=== PATIENT | male | born 1960 | race Caucasian/White ===

== ENCOUNTER 2017-05-05 16:32 | Inpatient (IN) ==
[2017-05-05 18:54] LABS: Basophils # 0.1 K/mcL (0.0-0.2); Eosinophils # 0.5 K/mcL (0.0-0.6); Eosinophils % 4.8 %; Hematocrit 38.5 % (37.5-50.1); Hemoglobin 13.1 g/dL (12.9-16.9); Immature Granulocytes % 0.2 % (0-4); Lymphocytes # 3.9 K/mcL (0.6-4.6); Lymphocytes % 39.1 %; Mean Corpuscular Hemoglobin 32.4 pg (28.0-33.3); Mean Corpuscular Volume 95.3 fL (83.0-100.0); Mean Platelet Volume 9.8 fL (9.4-12.4); Monocytes % 10.1 %; Neutrophils # 4.4 K/mcL (1.6-8.9); Platelet Count 213 K/mcL (140-400); Red Blood Count 4.04 M/mcL (4.19-5.50); Red Cell Distribution Width 13.1 % (11.5-14.5); Segmented Neutrophils % 44.8 %
[2017-05-05 19:06] LABS: Albumin 2.5 g/dL (3.5-5.0); Albumin/Globulin Ratio 0.5 (1.1-2.2); Bilirubin,Total 0.5 mg/dL (0.2-1.2); Calcium 8.7 mg/dL (8.6-10.8); Globulin 4.8 g/dL (2.4-3.5); Potassium 4.1 mEq/L (3.5-4.5); Total Protein 7.3 g/dL (6.0-8.3)
[2017-05-05] MEDS ORDERED: 0.9 % Sodium Chloride 1,000 ML IVC ONE (19:13)
[2017-05-05] MEDS ORDERED: Vancomycin 1,000 MG in D5% in Water 250 ML IVPB ONE (19:13)
--- NOTE | 2017-05-05 19:17 | Emergency Department Note ---
Disposition Clinical Impression: Osteomyelitis of foot, left, acute, Acute kidney injury Disposition: Admitted As Inpatient Condition: Serious Referrals: Cesar Bourgeois DO [Primary Care Provider] - Forms: ED Satisfaction Letter Time of Disposition: 19:20 Lower Extremity Injury HPI - General Chief Complaint: ED Wound/Laceration Stated Complaint: Dr. Bourgeois// infection on left big toe Time Seen by Provider: 05/05/17 19:11 Source: patient Limitations: no limitations Nursing Notes Reviewed: Yes Vital Signs Reviewed: Yes - History of Present Illness HPI Narrative: 56-year-old male history of hepatitis C on antiviral treatment, history of lower extremity frostbite, and peripheral neuropathy, presents after a injury to his left great toe 6 days ago complaining of left toe pain and possible infection. Patient was transferred from his primary care physician's office. Jatin Daley saw him today and was concerned for infection of his left great toe. The patient the patient states that he has maybe 2 out of 10 pain with emulating but does not feel much pain with toe secondary to neuropathy. Patient states that after he kicked his toe 4 days ago he went into the urgent care where they prescribed him Bactrim but did not examine his foot. He then ascribes a ecchymotic purple foot that expressed pus and later became erosive prior to going to the PCP, he had no fever, chills, shortness of breath, chest pain, hemoptysis, hematuria, hematemesis. Pt Subjective Complaint: toe injury Onset (ago): day(s) (6) Context: fall Place: home Pain Severity: mild Pain Scale: 2 Improves with: nothing Worsens with: nothing Associated symptoms: Reports: able to partially bear weight - Related Data Home Medications Medication Instructions Recorded Confirmed Albuterol Sulfate [Albuterol 2 puff IH Q4H PRN 12/20/15 05/30/16 Inhaler] Diclofenac Sodium [Voltaren] 75 mg PO BID 12/20/15 05/30/16 HYDROcodone/Acet 5/325 mg [[place] 1 tab PO Q6H PRN 12/20/15 05/30/16 5-325 mg] Losartan Potassium [Cozaar] 50 mg PO BID 12/20/15 05/30/16 Nadolol 20 mg PO DAILY 12/20/15 05/30/16 Ranitidine HCl [Zantac] 150 mg PO BID PRN 12/20/15 05/30/16 diazePAM [Diazepam] 10 mg PO TID 12/20/15 05/30/16 Albuterol Neb [AccuNeb] 0.63 mg IH Q6H PRN 05/05/17 05/05/17 Elbasvir/Grazoprevir [Zepatier 1 each PO DAILY 05/05/17 05/05/17 50-100 mg Tablet] Umeclidinium Brm/Vilanterol Tr 1 each IH DAILY 05/05/17 05/05/17 [Anoro Ellipta 62.5-25 Mcg INH] Previous Rx's Medication Instructions Recorded Mupirocin [Bactroban Oint] 1 appl TP BID 7 Days 04/24/17 Allergies Allergy/AdvReac Type Severity Reaction Status Date / Time Penicillins Allergy Swelling Verified 05/05/17 16:50 of Lip/Tongue/Throat All systems ED: reviewed and negative except as stated. Review of Systems: As Per HPI Constitutional: Denies: fever Eyes: Denies: eye pain ENT ED: Denies: ear pain Cardiovascular: Denies: chest pain, palpitations Respiratory: Denies: cough, dyspnea Gastrointestinal: Denies: abdominal pain, nausea, vomiting Genitourinary: Denies: urgency Musculoskeletal: Reports: as per HPI, joint swelling, arthralgia. Denies: back pain Integumentary: Reports: as per HPI, rash, lesions Past Medical History - Past Medical History Attestation: Yes The following information was validated with the patient. Source: patient Medical history: Reports: COPD, other Surgical history: Reports: other Psychiatric history: Reports: anxiety - Social History Smoking Status: Current every day smoker Smokeless Tobacco Status: No Alcohol use: Reports: none Drug use: Reports: none Physical Exam Constitutional: NAD, vital signs reviewed and wnl Eyes: PERRLA Resp: CTA bilaterally, no resp distress CV: RRR, no m/g/r GI: normal inspection, soft, no guarding or rigidity Back: normal inspection, no tenderness to palpation Neuro: A&O3, decreased sensation bilateral lower extremity's. MSK: exposed bone left great toe with obvious deformity Skin: Lesion to left great toe 3cm diameter with purulence and erosive changes - General Limitations: no limitations General appearance: alert Course Course Narrative: 56-year-old male with concern for left great toe osteomyelitis he appears have an open fracture with bone exposed, I will start IV antibiotics and ceftriaxone given that he has had no anaphylaxis to cephalosporins in the past, Consult podiatry blood work vitals shows no evidence of Sirs criteria, plan for admission to medicine service - Reevaluation(s) Reevaluation #1: Admitted to Dr Walters, IV Abx started IV Fluids and NPO after midnight plan for podiatry consultation in AM to discuss surgical management. - Consultations Consultation #1: Spoke with Dr. Smith he agrees with plan, will consult patient after hospitalist admission. Vital Signs Temperature 98.6 F 05/05/17 16:50 Pulse Rate 70 05/05/17 16:50 Respiratory Rate 20 05/05/17 16:50 Blood Pressure 125/82 05/05/17 16:50 O2 Sat by Pulse Oximetry 97 05/05/17 16:50 Temperature 98.6 F 05/05/17 16:50 Pulse Rate 70 05/05/17 16:50 Respiratory Rate 20 05/05/17 16:50 Blood Pressure 125/82 05/05/17 16:50 O2 Sat by Pulse Oximetry 97 05/05/17 16:50 Oxygen Delivery Oxygen Delivery Room Air Extremity Injury, Lower - MDM Narrative Medical decision making narrative: 56-year-old male with left great toe osteomyelitis admitted to medicine service for IV antibiotics podiatry consult and possible amputation Dr Walters accepting - Differential Diagnosis Likely: sprain/strain, puncture wound - Medical Records Medical records reviewed: Yes I reviewed the patient's medical records. - Lab Data Lab results reviewed: Yes I reviewed the patient's lab results. Result diagrams: 05/05/17 18:41 05/05/17 18:41 Lab Results 05/05/17 05/05/17 Range/Units 18:41 18:41 WBC 9.9 (4.3-11.1) K/mcL RBC 4.04 L (4.19-5.50) M/mcL Hgb 13.1 (12.9-16.9) g/dL Hct 38.5 (37.5-50.1) % MCV 95.3 (83.0-100.0) fL MCH 32.4 (28.0-33.3) pg MCHC 34.0 (31.6-35.5) g/dL RDW 13.1 (11.5-14.5) % Plt Count 213 (140-400) K/mcL MPV 9.8 (9.4-12.4) fL Immature Gran % 0.2 (0-4) % Seg Neutrophils % 44.8 % Lymphocytes % 39.1 % Monocytes % 10.1 % Eosinophils % 4.8 % Basophils % 1.0 % Neutrophils # 4.4 (1.6-8.9) K/mcL Lymphocytes # 3.9 (0.6-4.6) K/mcL Monocytes # 1.0 (0.0-1.3) K/mcL Eosinophils # 0.5 (0.0-0.6) K/mcL Basophils # 0.1 (0.0-0.2) K/mcL Sodium 138 (136-145) mEq/L Potassium 4.1 (3.5-4.5) mEq/L Chloride 109 (98-109) mEq/L Carbon Dioxide 23 (19-29) mEq/L BUN 16 (8-26) mg/dL Creatinine 2.13 H (0.72-1.25) mg/dL Est GFR ( Amer) 39 L (> 60) Est GFR (Non-Af Amer) 33 L (> 60) BUN/Creatinine Ratio 8 (6-26) Glucose 116 H (70-99) mg/dL Calculated Osmolality 288 (280-300) Calcium 8.7 (8.6-10.8) mg/dL Total Bilirubin 0.5 (0.2-1.2) mg/dL AST 68 H (5-34) Units/L ALT 55 (0-55) Units/L Alkaline Phosphatase 117 (38-126) Units/L Serum Total Protein 7.3 (6.0-8.3) g/dL Albumin 2.5 L (3.5-5.0) g/dL Globulin 4.8 H (2.4-3.5) g/dL Albumin/Globulin Ratio 0.5 L (1.1-2.2) - Radiology Data Radiology results reviewed: Yes I reviewed the patient's radiology results. Foot X-Ray 05/05/17 16:54 IMPRESSION: Acute, open, comminuted great toe proximal phalanx fracture with erosive changes of the great toe distal and proximal phalanges consistent with osteomyelitis. D/ / Ti Alvarez MD / Ti Alvarez MD Interpreting Provider: Ti Alvarez MD Attestation Statement - Attestation Attestation: I, Maximino Love MD, personally evaluated this patient and discussed their management with the resident physician. I reviewed the resident's note and agree with the documented findings, medical decision making, and plan of care. 56-year-old male presents to the emergency department with a complaint of an injury to the left big toe which occurred 6 days prior to arrival. Patient states that he accidentally kicked a television during the night 6 days ago. He had an open wound. He went to an urgent care 4 days ago on Thursday. He states that they did not undress the wound or even look at his toe but gave him a prescription for Bactrim. He saw his primary care provider today who referred him to the emergency department. Denies any fever. He denies any significant pain but states that he has a history of frostbite in the past and has no feeling in his feet. He is not diabetic. On examination patient is a well-developed well-nourished male in no acute distress. He is alert and oriented 3. There is no cyanosis or diaphoresis. Breath sounds are slightly decreased bilaterally with an occasional expiratory wheeze. Heart regular rate and rhythm. Abdomen is soft and nontender with normal bowel sounds. There is a large open wound to the medial aspect of the left big toe with fractured back dry on protruding from the wound. There is moderate surrounding erythema and edema with purulent drainage. Labs reviewed. Acute kidney injury noted. WBC normal. X-ray shows an open comminuted fracture of the proximal phalanx of the left big toe with findings of osteomyelitis. The human resources operations coordinator, Dr. Smith, was consulted by Dr. Le and recommended hospital admission with IV antibiotics and he will see the patient in the morning regarding possible amputation of the toe. The hospitalist, Dr. Walters, was consulted and accepted admission of the patient. Patient was started on vancomycin and Rocephin in the emergency department.
[2017-05-06] MEDS ORDERED: Acetaminophen 325 MG TABLET PO PRN (04:08)
[2017-05-06] MEDS ORDERED: Ondansetron 4 MG/2 ML VIAL IVP PRN (04:08)
[2017-05-06] MEDS ORDERED: Naloxone 0.4 MG/ML INJ IVP PRN (04:08)
--- NOTE | 2017-05-06 04:08 | Internal Med History&Physical ---
<Nick Goldsmith - Last Filed: 05/06/17 06:38> Date of Encounter: 05/06/17 Time of Encounter: 03:30 Assessment and Plan (1) Osteomyelitis of foot, left, acute Current visit: Yes Status: Acute Patient presents with open comminuted fracture of left great toe. Patient reportedly injured toe 2 weeks ago and after trial of Bactrim from an urgent care after the event his toe proceeded to get worse. Patient has history of neuropathy so could not feel the significance of his injury. He was sent to the hospital after his PCP saw the toe earlier today. X-ray of his foot shows significant fracture and evidence of osteomyelitis. Physical exam of his foot reveals cellulitis extending to the metacarpal region, but significant open great toe fracture with visible bones and necrotic tissue. We will give patient antibiotics of vancomycin and cefepime Consult podiatry for likely amputation later today Tylenol as needed for mild pain or fever (2) Acute kidney injury Current visit: Yes Status: Acute Patient presents with acute kidney injury with serum creatinine of 2.13, previous creatinine is normal. BUN normal. Ratio of BUN to creatinine does not suggest prerenal pathology, suspect tubulointerstitial versus ATN. No previously known renal disease. Less likely distributive basis for hypoperfusion of kidneys as patient does not meet any sepsis criteria. We will obtain a UA with urine eosinophils Retroperitoneal ultrasound We will continue patient on D5/half-normal saline at 125 mL an hour We will consult nephrology for assistance in workup of new kidney injury (3) COPD (chronic obstructive pulmonary disease) Current visit: Yes Status: Acute Patient reports continuing to be in every day smoker, though does state that he is trying to reduce the amount he smokes. Previously diagnosed as COPD on albuterol nebulizer, albuterol inhaler, and Anoro Ellipta inhaler. Currently stable. He also reports using 2 L oxygen at home. 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 He is on diclofenac, anti-inflammatories, and Vicodin at home to assist in his pain. We will hold anti-inflammatories and diclofenac on a Patient acute kidney injury Continue patient hydrocodone for pain (5) HTN (hypertension) Current visit: Yes Status: Acute Patient on losartan 50 mg twice a day at home for his hypertension. Patient has had controlled blood pressure since presentation. We will continue to monitor patient's blood pressure We will hold losartan on account of patient's acute kidney injury Qualifiers: Hypertension type: essential hypertension Qualified Code(s): I10 - Essential (primary) hypertension (6) Hepatitis C Current visit: Yes Status: Chronic patient has history of hepatitis C and is currently under treatment with Zepatier. He states that he started taking therapy about 1 month ago and has some flu like symptoms that have been improving somewhat since then. Qualifiers: Viral hepatitis chronicity: chronic Hepatic coma status: without hepatic coma Qualified Code(s): B18.2 - Chronic viral hepatitis C (7) DVT prophylaxis Current visit: Yes Status: Acute Due to likely surgery later today, will hold chemical prophylaxis for now and start mechanical DVT prophylaxis with intermittent pneumatic compression to the [facility] Internal Medicine - H&P: HPI Chief complaint: Broken and infected left great toe Admitted From: Home Plans for Post Hospital Care: Home History of present illness: Mr. Valle is a 56 year old male with past medical history of hypertension, COPD, neuropathy, and hepatitis C (currently under treatment) presents to [place] because of a broken infected great left toe. He states the original injury happened 2 weeks ago when he excellently kicked the TV in his room, at that time he did notice a little bit of blood but could not identify source. He did not feel any pain due to him having neuropathy in both his feet and 72 from an incident of frostbite when he was younger. He presented to an urgent care shortly after the initial vent and states that it was not looked at the time. He was given a prescription for Bactrim and antibiotic cream. For the last week and a half he has been preoccupied with the of one of his friends and he cannot feel the pain on account of his neuropathy. He went to his PCP, Dr Bourgeois, on Saturday 05/05 and after initial assessment of the toe was told to go to the emergency room. He reports that since that time he has felt a general malaise with mild fevers and diaphoresis, but attributes this to starting antiviral therapy for hepatitis C one month ago as it has been happening since then and been gradually getting better. At the emergency room was found to have a significant, open, comminuted fracture of his left great toe with bones and necrotic tissue observable. X- ray of his foot suggested osteomyelitis and patient was started on empiric antibiotics. Dr. Smith was consulted for concern of possible need of amputation. Past Med Surg Social Fam HX - Past Medical History Medical history: arthritis, COPD, hepatitis, hypertension, other Psychiatric history: anxiety - Past Surgical History Surgical History: other - Social History Smoking Status: Current every day smoker Packs per day: 0.5 Smokeless Tobacco Status: No Alcohol use: none Drug use: none - Family History Father Living Status: Cause of : Lung and bladder Ca. Hx Family Cancer: Yes (Lung and bladder Ca.) Mother Living Status: Still Living Hx Family Cardiac Disorders: Yes (HTN) Internal Medicine - H&P: Meds Albuterol Sulfate [Albuterol Inhaler] 2 puff IH Q4H PRN 12/20/15 [History] Diclofenac Sodium [Voltaren] 75 mg PO BID 12/20/15 [History] HYDROcodone/Acet 5/325 mg [[place] 5-325 mg] 1 tab PO Q6H PRN 12/20/15 [History] Losartan Potassium [Cozaar] 50 mg PO BID 12/20/15 [History] Nadolol 20 mg PO DAILY 12/20/15 [History] Ranitidine HCl [Zantac] 150 mg PO BID PRN 12/20/15 [History] diazePAM [Diazepam] 10 mg PO TID 12/20/15 [History] Mupirocin [Bactroban Oint] 1 appl TP BID 7 Days 04/24/17 [Rx] Albuterol Neb [AccuNeb] 0.63 mg IH Q6H PRN 05/05/17 [History] Elbasvir/Grazoprevir [Zepatier 50-100 mg Tablet] 1 each PO DAILY 05/05/17 [ History] Umeclidinium Brm/Vilanterol Tr [Anoro Ellipta 62.5-25 Mcg INH] 1 each IH DAILY 05/05/17 [History] 3 Allergy/AdvReac Type Severity Reaction Status Date / Time Penicillins Allergy Swelling Verified 05/05/17 16:50 of Lip/Tongue/Throat Review of systems: Gen: Denies fever, denies chills, denies weakness, denies fatigue, reports mild malaise attributed to antiviral medication for hep C CV: Denies chest pain, denies exertional chest pain or dyspnea, denies palpitations Resp: Reports chronic shortness of breath, denies coughing, denies changes in phlegm production, reports wheeze GI: Denies nausea, denies vomiting, denies abdominal pain, denies constipation, denies diarrhea MSK: denies arthralgia, denies muscle weakness Neuro: Denies headache, denies confusion, denies focal weakness, reports numbness in bilateral lower extremities on account of frostbite, denies tingling , denies vision changes Skin: Denies bruising, denies rash : Denies flank pain, denies dysuria, denies hematuria - Constitutional Vitals: Temp Pulse Resp BP Pulse Ox 97.4 F L 61 19 109/71 95 05/06/17 01:20 05/06/17 01:20 05/06/17 01:20 05/06/17 01:20 05/06/17 01:20 Exam: General: Cooperative, pleasant, no acute distress, alert and oriented 3, answers questions appropriately HEENT: Normocephalic, atraumatic, neck supple, trachea midline, Conjunctiva pink , sclera anicteric, PERRL, oral mucosa moist, no orophargeal erythema or exudates Respiratory: No accessory muscle usage, diffuse wheezing bilaterally to auscultation Cardiovascular: Regular rate and rhythm, S1 and S2 present, no murmurs/rubs/ gallops/clicks appreciated GI/abdominal: Nondistended, nontender, soft, normal bowel sounds, no peritoneal signs Extremities: No calf tenderness, noncyanotic, lower extremity pulses palpable and symmetrical, area of cellulitis extending to metacarpals on left foot starting the great toe, marked by skin marker, great toe surrounding the DIP is open with osseous structures necrotic tissue visible roughly half to 1 cm deep, evidence of fluid drainage on bedsheets surrounding Neurological: Alert and oriented 3, no facial droop, no focal deficits Skin: Dry, intact, normal color Internal Med - H&P Results - Labs CBC & Chem 7: 05/06/17 05:21 05/06/17 05:21 <Waqas Galvan - Last Filed: 05/06/17 06:50> Date of Encounter: 05/06/17 Time of Encounter: 06:15 - Constitutional Constitutional: chills, no fever(s), no night sweats - EENT Eyes: no change in vision Ears: no tinnitus Nose, mouth and throat: no sinus pressure, no sore throat - Cardiovascular Cardiovascular ROS IM: no chest pain, no diaphoresis, no dyspnea - Respiratory Respiratory: no cough, no hemoptysis - Gastrointestinal Gastrointestinal: no abdominal pain, no diarrhea, no vomiting - Genitourinary Genitourinary ROS male: no dysuria, no flank pain, no hematuria - Musculoskeletal Musculoskeletal ROS IM: arthralgias, no back pain - Integumentary Integumentary IM: no jaundice - Neurological Neurological ROS: paresthesias (bilateral feet - chronic), no dizziness, no focal weakness, no frequent falls - Psychiatric Psychiatric: no anxiety, no depression - Constitutional Vitals: Temp Pulse Resp BP Pulse Ox 97.4 F L 61 19 109/71 95 05/06/17 01:20 05/06/17 01:20 05/06/17 01:20 05/06/17 01:20 05/06/17 01:20 General appearance: Present: cooperative, pleasant, no acute distress - Head Head exam: Present: normal inspection - Eye Eye exam: Present: PERRL. Absent: scleral icterus - ENT ENT exam: Present: mucous membranes dry, normal exam - Neck Neck exam general surgery: Present: supple - Respiratory Respiratory exam: Present: CTAB. Absent: rales, rhonchi, wheezes - Cardiovascular Cardiovascular exam: Present: RRR, +S1, +S2 - GI/Abdominal GI/Abdominal exam: Present: soft. Absent: hepatomegaly, splenomegaly, tenderness - Extremities Exam Extremities exam: Present: full ROM. Absent: calf tenderness, joint swelling, pedal edema Additional comments: left foot dressed and wrapped; I did not visualize his open wound; I will defer to podiatry. - Back Exam Back exam: Present: normal inspection. Absent: CVA tenderness (L), CVA tenderness (R) - Psychiatric Psychiatric exam: Present: normal affect, normal mood - Skin Skin exam: Absent: rash Internal Med - H&P Results - Labs CBC & Chem 7: 05/06/17 05:21 05/06/17 05:21 Labs: Short CBC 05/06/17 Range/Units 05:21 WBC 6.6 (4.3-11.1) K/mcL Hgb 11.7 L (12.9-16.9) g/dL Hct 34.6 L (37.5-50.1) % Plt Count 174 (140-400) K/mcL Neutrophils # 2.1 (1.6-8.9) K/mcL BMP 05/06/17 05:21 Sodium 138 Potassium 3.8 Chloride 111 H Carbon Dioxide 21 BUN 16 Creatinine 1.86 H Glucose 122 H Calcium 8.5 L - Diagnostic Studies Other Images Status: image reviewed by me (foot xray visulalized personally) - Attending Attestation I discussed the patient [place], PMH, ROS, lab data, and exam findings with Dr. Goldsmith. I then saw and examined patient independently as well. Patient has history of peripheral neuropathy but he is not diabetic. He injured his toe/ foot a few weeks ago and now appears to have osteomyelitis with likely need for toe amputation. Dr. Smith has been consulted. I reviewed his drug allergy with him and he notes an anaphylactic reaction to penicillin. I therefore stopped his cephalosporins. I added Levaquin to Vancomycin. Nonetheless, he will ultimately need surgery in my opinion. I discussed this with patient at length, and he agrees with the plan. Other than my comments above and noted exam findings, I agree with Dr. Goldsmith's assessment and plan.
[2017-05-06] MEDS ORDERED: *HR* HYDROcodone/Acet 5/325 mg TABLET PO PRN (04:38)
[2017-05-06] MEDS ORDERED: Famotidine 20 MG TABLET PO PRN (04:38)
[2017-05-06] MEDS ORDERED: Albuterol Neb 0.63 MG/3 ML VIAL IH PRN (04:38)
[2017-05-06] MEDS ORDERED: Vancomycin 1,750 MG in D5% in Water 250 ML IVPB SCH (05:00)
[2017-05-06] MEDS: D5% in 0.45% NACL 1,000 ML IVC SCH ×2 (05:06→16:31)
[2017-05-06 05:38] LABS: Basophils # 0.1 K/mcL (0.0-0.2); Basophils % 1.7 %; Eosinophils # 0.4 K/mcL (0.0-0.6); Eosinophils % 5.9 %; Hematocrit 34.6 % (37.5-50.1); Hemoglobin 11.7 g/dL (12.9-16.9); Immature Granulocytes % 0.3 % (0-4); Lymphocytes # 3.2 K/mcL (0.6-4.6); Lymphocytes % 48.6 %; Mean Corpuscular HGB Conc 33.8 g/dL (31.6-35.5); Mean Corpuscular Hemoglobin 31.8 pg (28.0-33.3); Mean Platelet Volume 9.9 fL (9.4-12.4); Monocytes # 0.8 K/mcL (0.0-1.3); Monocytes % 11.6 %; Neutrophils # 2.1 K/mcL (1.6-8.9); Platelet Count 174 K/mcL (140-400); Red Blood Count 3.68 M/mcL (4.19-5.50); Segmented Neutrophils % 31.9 %
[2017-05-06 05:39] LABS: INR 1.5; Prothrombin Time 16.3 Seconds (9.4-12.1)
[2017-05-06 05:42] LABS: Activated Partial Thrombo Time 32.4 Seconds (26.0-36.0)
[2017-05-06 05:44] LABS: Potassium 3.8 mEq/L (3.5-4.5)
[2017-05-06 05:45] LABS: Calcium 8.5 mg/dL (8.6-10.8)
[2017-05-06] MEDS ORDERED: Vancomycin 1,750 MG in D5% in Water 500 ML IVPB SCH (06:00)
[2017-05-06] MEDS ORDERED: Pantoprazole 40 MG VIAL IVP SCH (06:30)
[2017-05-06] MEDS ORDERED: Cefepime HCl 2,000 MG in D5% in Water (Mini-Bag+) 100 ML IVPB SCH (08:00)
[2017-05-06] MEDS: diazePAM 10 MG TABLET PO SCH ×3 (08:40→21:05)
[2017-05-06] MEDS: Levofloxacin 750 MG/150 ML 750 MG/150 ML BAG IVPB SCH (08:41)
--- NOTE | 2017-05-06 11:09 | Event Note ---
Date of Encounter: 05/06/17 Time of Encounter: 10:25 Nephrology Pt was off the floor getting a renal U/S. I met his and his mother, who has CKD. Further recommendations to follow after my clinic; so later today I will attempt to find the pt again. Thank you.
[2017-05-06 11:15] LABS: Bilirubin,Urine Negative (Negative); Blood,Urine Negative (Negative); Clarity,Urine Clear (Clear); Color,Urine Yellow (Yellow); Glucose,Urine (UA) Normal (Normal); Ketones,Urine Negative (Negative); Leukocyte Esterase,Urine Negative (Negative); Nitrite,Urine Negative (Negative); PH,Urine 6.5 pH Units (5.0-8.0); Protein,Urine Negative (Neg-Trace); Specific Gravity,Urine 1.011 (1.010-1.025); Urobilinogen,Urine Normal (Normal)
--- NOTE | 2017-05-06 13:39 | Event Note ---
Date of Encounter: 05/06/17 Time of Encounter: 13:05 Patient is a 56y/o male admitted for left foot OM and WILLIAM. He is started on empiric IV abx. As per podiatry, he is to undergo amputation of distal left foot in am. NPO after midnight Pt is noted to be on Diclofenac PO BID (for arthritis) along with Losartan, both of which can be contributing to his current WILLIAM. Nephrology on board and consultation appreciated Renally dosing IV abx (changed Vancomycin to qdaily from BID given renal function), will closely monitor vanco trough Will resume all other home medications. Patient seen and examined with family present at bedside. Vitals and labs reviewed. Assessment/Plan reviewed with the patient and family.
--- NOTE | 2017-05-06 13:52 | Podiatry Consult Note ---
Date of Encounter: 05/06/17 Time of Encounter: 12:00 Assessment and Plan (1) Osteomyelitis of foot, left, acute Current visit: Yes Status: Acute Assessment: Acute open fracture of left great toe with osteomyelitis of distal and proximal phalanx of toe Plan: Will plan for I&D of wound bed, amputation of toe #1 left foot and wound vac placement in OR tomorrow per Patient is currently on cefipime and vancomycin IV coverage- please monitor renal function- will send cultures from OR tomorrow Regular diet at this time. Will be NPO after midnight Cleansed wound with saline, measurements obtained, painted with betadine and applied wet to dry dressing placed at bedside today. Will need SW on board following - may possibly go home with wound vac depending on clinical picture. at bedside, thorough discussion of OR plans at bedside with patient and family. Verbalized understanding. Denies any questions or concerns. History of Present Illness HPI: Mr. Valle is a 56 year old male with a history of COPD, tobacco abuse, hep C, peripheral neuropathy and renal insufficiency. Patient presented to [facility] regarding an ulceration of left great toe. Patient reports that he hit his toe on a TV stand 2 weeks ago. States he went to an urgent care 2 days later and was placed on Bactrim PO BID. Patient states that ulceration continued to expand and he presented to the ED last night. Patient states there is minimal pain due to his neuropathy. Patient denies any fevers chills n/v or flu like symptoms. xray imagining consistent with an open fracture and osteomyelitis of the great toe. Patient states there was a small callus/ulcer to the bottom of the toe before the injury, therefore it is unknown if the bone was compromised by infection prior to the fracture and further ulceration. Foot X-Ray 05/05/17 16:54 IMPRESSION: Acute, open, comminuted great toe proximal phalanx fracture with erosive changes of the great toe distal and proximal phalanges consistent with osteomyelitis. D/ / Ti Alvarez MD / Ti Alvarez MD Past Med Surg Social Fam HX - Past Medical History Medical history: arthritis, COPD, hepatitis, hypertension, other Psychiatric history: anxiety - Past Surgical History Surgical History: other - Social History Smoking Status: Current every day smoker Packs per day: 0.5 Smokeless Tobacco Status: No Alcohol use: none Drug use: none - Family History Father Living Status: Cause of : Lung and bladder Ca. Hx Family Cancer: Yes (Lung and bladder Ca.) Mother Living Status: Still Living Hx Family Cardiac Disorders: Yes (HTN) Medications and Allergies Albuterol Sulfate [Albuterol Inhaler] 2 puff IH Q4H PRN 12/20/15 [History] Diclofenac Sodium [Voltaren] 75 mg PO BID 12/20/15 [History] HYDROcodone/Acet 5/325 mg [[place] 5-325 mg] 1 tab PO Q6H PRN 12/20/15 [History] Losartan Potassium [Cozaar] 50 mg PO BID 12/20/15 [History] Nadolol 20 mg PO DAILY 12/20/15 [History] Ranitidine HCl [Zantac] 150 mg PO BID PRN 12/20/15 [History] diazePAM [Diazepam] 10 mg PO TID 12/20/15 [History] Mupirocin [Bactroban Oint] 1 appl TP BID 7 Days 04/24/17 [Rx] Albuterol Neb [AccuNeb] 0.63 mg IH Q6H PRN 05/05/17 [History] Elbasvir/Grazoprevir [Zepatier 50-100 mg Tablet] 1 each PO DAILY 05/05/17 [ History] Umeclidinium Brm/Vilanterol Tr [Anoro Ellipta 62.5-25 Mcg INH] 1 each IH DAILY 05/05/17 [History] 3 Allergy/AdvReac Type Severity Reaction Status Date / Time Penicillins Allergy Swelling Verified 05/05/17 16:50 of Lip/Tongue/Throat All Systems Reviewed: A 10-system review of systems was performed and is negative for pertinent findings except as documented above in the HPI. Physical Exam - Constitutional Vitals: Temp Pulse Resp BP Pulse Ox 97.9 F 57 14 135/76 96 05/06/17 10:59 05/06/17 10:59 05/06/17 10:59 05/06/17 10:59 05/06/17 10:59 Exam: General Examination: CONSTITUTIONAL: Alert, oriented, in no acute distress, non-toxic. EXTREMITIES: CFT 3 seconds all toes. Edema +1 and pedal pulses palpable DP/PT. SKIN: There is a large necrotic ulceration to the dorsal/medial aspect of toe #1 left. There is exposure of fractured bone. Wound bed is filled with fibrous slough tissue. Wound measures [id number] depth. There is pieces of necrotic skin within wound bed. There is no noted granulation tissue. There is foul odor. Edema and erythema to periwound. This has been marked for monitoring , no streaking noted. Erythema extends slightly past MTP joint of toe. There is no noted sinus or tunneling upon exam. There are no areas of fluctuance noted. NEUROLOGIC: Minimal sensation to light touch. Reports some pain with palpation of wound bed Results - Labs Result Diagrams: 05/06/17 05:21 05/06/17 05:21 Labs: Abnormal lab results RBC 3.68 M/mcL (4.19-5.50) L 05/06/17 05:21 Hgb 11.7 g/dL (12.9-16.9) L 05/06/17 05:21 Hct 34.6 % (37.5-50.1) L 05/06/17 05:21 PT 16.3 Seconds (9.4-12.1) H 05/06/17 05:21 Chloride 111 mEq/L (98-109) H 05/06/17 05:21 Creatinine 1.86 mg/dL (0.72-1.25) H 05/06/17 05:21 Est GFR ( Amer) 46 (> 60) L 05/06/17 05:21 Est GFR (Non-Af Amer) 38 (> 60) L 05/06/17 05:21 Glucose 122 mg/dL (70-99) H 05/06/17 05:21 Calcium 8.5 mg/dL (8.6-10.8) L 05/06/17 05:21 AST 68 Units/L (5-34) H 05/05/17 18:41 Albumin 2.5 g/dL (3.5-5.0) L 05/05/17 18:41 Globulin 4.8 g/dL (2.4-3.5) H 05/05/17 18:41 Albumin/Globulin Ratio 0.5 (1.1-2.2) L 05/05/17 18:41 All other labs normal. Consult Discharge Plan - Plan Referrals: Cesar Bourgeois DO [Primary Care Provider] -
[2017-05-06] MEDS: *HR* Heparin 5,000 UNIT/ML VIAL SQ SCH (16:33)
--- NOTE | 2017-05-06 19:24 | Anesthesia Evaluation PreOp ---
Date of Encounter: 05/06/17 Time of Encounter: 21:36 - Past History Planned Operation: I&D left great toe Cardiac History: HTN Pulmonary History: Smoker, COPD (home oxygen at night) NUTRITION COUNSELOR History: Other (anxiety, tremor) Other Medical History: Hepatic (Hep C - receiving treatment currently), GERD Anesthesia History: No Prior Anesthetic Complications Alcohol Use: none Drug use: none Medications and Allergies Albuterol Sulfate [Albuterol Inhaler] 2 puff IH Q4H PRN 12/20/15 [History] Diclofenac Sodium [Voltaren] 75 mg PO BID 12/20/15 [History] HYDROcodone/Acet 5/325 mg [[place] 5-325 mg] 1 tab PO Q6H PRN 12/20/15 [History] Losartan Potassium [Cozaar] 50 mg PO BID 12/20/15 [History] Nadolol 20 mg PO DAILY 12/20/15 [History] Ranitidine HCl [Zantac] 150 mg PO BID PRN 12/20/15 [History] diazePAM [Diazepam] 10 mg PO TID 12/20/15 [History] Mupirocin [Bactroban Oint] 1 appl TP BID 7 Days 04/24/17 [Rx] Albuterol Neb [AccuNeb] 0.63 mg IH Q6H PRN 05/05/17 [History] Elbasvir/Grazoprevir [Zepatier 50-100 mg Tablet] 1 each PO DAILY 05/05/17 [ History] Umeclidinium Brm/Vilanterol Tr [Anoro Ellipta 62.5-25 Mcg INH] 1 each IH DAILY 05/05/17 [History] 3 Allergy/AdvReac Type Severity Reaction Status Date / Time Penicillins Allergy Swelling Verified 05/05/17 16:50 of Lip/Tongue/Throat - Meds/Allergy Pre-op Review Medications Reviewed: Yes Allergies Reviewed: Yes Beta Blockers on Current Med List: Yes (nadolol (for tremors)) Anesthesia Results - Labs 05/06/17 05:21 05/06/17 05:21 - Imaging EKG: report reviewed, image reviewed (SR) Anesthesia Exam Last Vital Signs Temp 97.5 F L 05/06/17 14:44 Pulse 60 05/06/17 14:44 Resp 14 05/06/17 14:44 BP 133/77 05/06/17 14:44 Pulse Ox 96 05/06/17 14:44 Weight: 119 kg - HEENT Pupil (Motor): Pupils equal Mallampati: III Teeth: Edentulous Oral Opening: Greater than 3 - NUTRITION COUNSELOR LOC: Oriented NUTRITION COUNSELOR Motor: Normal RUE, Normal LUE, Normal RLE, Normal LLE, Normal Face - Cardiac Rhythm: Regular Murmur: None - Pulmonary Breath Sounds: bilateral Clear Respiratory Effort: Symmetrical Anesthesia Assess/Plan ASA Score: 3 Modified Emmanuelle Scale for Level of Consciousness: Cooperative, oriented, and tranquil Anesthetic Plan: MAC Monitoring Plan: Standard Monitors Recovery Plan: PACU
[2017-05-07] MEDS: D5% in 0.45% NACL 1,000 ML IVC SCH (00:25)
[2017-05-07] MEDS: *HR* Heparin 5,000 UNIT/ML VIAL SQ SCH ×2 (05:17→16:40)
[2017-05-07] MEDS ORDERED: Vancomycin 1,750 MG in D5% in Water 500 ML IVPB SCH (06:00)
[2017-05-07] MEDS ORDERED: Vancomycin 1,250 MG in D5% in Water 250 ML IVPB SCH (06:00)
[2017-05-07 07:36] LABS: BUN/Creatinine Ratio 9 (6-26); Blood Urea Nitrogen 11 mg/dL (8-26); Carbon Dioxide 22 mEq/L (19-29); Chloride 109 mEq/L (98-109); Glucose 119 mg/dL (70-99); Magnesium 1.1 mg/dL (1.6-2.6); Osmolality,Calculated 287 (280-300); Phosphorous 4.1 mg/dL (2.3-4.7); Potassium 3.9 mEq/L (3.5-4.5); Sodium 138 mEq/L (136-145); eGFR For African Americans > 60 (> 60); eGFR For Non-African Americans 59 (> 60)
[2017-05-07] MEDS: Levofloxacin 750 MG/150 ML 750 MG/150 ML BAG IVPB SCH (08:05)
[2017-05-07 08:06] LABS: Basophils # 0.1 K/mcL (0.0-0.2); Basophils % 1.2 %; Eosinophils # 0.3 K/mcL (0.0-0.6); Hematocrit 34.7 % (37.5-50.1); Hemoglobin 11.8 g/dL (12.9-16.9); Immature Granulocytes % 0.3 % (0-4); Lymphocytes # 3.3 K/mcL (0.6-4.6); Lymphocytes % 43.1 %; Mean Corpuscular Hemoglobin 32.4 pg (28.0-33.3); Mean Corpuscular Volume 95.3 fL (83.0-100.0); Mean Platelet Volume 10.5 fL (9.4-12.4); Monocytes # 0.8 K/mcL (0.0-1.3); Monocytes % 9.9 %; Neutrophils # 3.2 K/mcL (1.6-8.9); Platelet Count 172 K/mcL (140-400); Red Blood Count 3.64 M/mcL (4.19-5.50); Segmented Neutrophils % 41.5 %
[2017-05-07] MEDS: diazePAM 10 MG TABLET PO SCH ×3 (08:10→20:37)
[2017-05-07] MEDS ORDERED: Ketorolac 30 MG/ML VIAL ONE (09:07)
[2017-05-07] MEDS ORDERED: Ondansetron 4 MG/2 ML VIAL ONE (09:07)
[2017-05-07] MEDS ORDERED: Lidocaine -MPF 2% 2 ML VIAL ONE (09:07)
[2017-05-07] MEDS ORDERED: *HR* FentaNYL (PF) 100 MCG/2 ML VIAL ONE (09:08)
[2017-05-07] MEDS ORDERED: *HR* Propofol 200 MG/20 ML VIAL IVP ONE (09:08)
[2017-05-07] MEDS ORDERED: *HR* Midazolam HCl 2 MG/2 ML VIAL ONE (09:08)
[2017-05-07] MEDS ORDERED: Albuterol 2.5 MG/3 ML NEBULIZER IH ONE (09:33)
--- NOTE | 2017-05-07 09:48 | Event Note ---
Date of Encounter: 05/07/17 Time of Encounter: 09:46 Went to see patient for nephrology consult; patient in surgery. Will try and see patient later today when out of surgery Kidney function much improved. Scr down to 1.27 and GFR up from 38 to 59.
[2017-05-07] MEDS ORDERED: Bupivacaine/Clonidine Syringe 1 EACH SYRINGE ONE (10:14)
[2017-05-07 10:22] LABS: Hemoglobin A1C 5.6 %
[2017-05-07] MEDS ORDERED: *HR* HYDROmorphone (PF) 1 MG/ML SYRINGE IVP PRN ×2 (11:08→13:29)
[2017-05-07] MEDS ORDERED: Ondansetron 4 MG/2 ML VIAL IVP PRN ×2 (11:08→13:29)
[2017-05-07] MEDS ORDERED: Albuterol 2.5 MG/3 ML NEBULIZER IH PRN ×2 (11:08→13:29)
--- NOTE | 2017-05-07 12:55 | Anesthesia Evaluation Post Op ---
Date of Encounter: 05/07/17 Time of Encounter: 12:54 - Vital Signs Vital Signs: Selected Entries 05/07/17 12:50 Temperature 97.0 F L Pulse Rate 63 Respiratory Rate 16 Blood Pressure 135/88 O2 Sat by Pulse Oximetry 97 - Lungs Lungs: Clear Ascult./Percussion - Airway Airway: Non-obstructed - Cardiovascular Regular Rate - Mental Status Mental Status: Alert & Oriented, Answers Appropriately - Pain Pain Scale: 1 Pain Scale used: Numeric (1 - 10) - Nausea Vomiting Nausea Vomiting: Not Present - Hydration Hydration: Tolerates oral liquids, Has not voided - Discharge PostOp Status: Transfer Patient to floor
[2017-05-07] MEDS ORDERED: Acetaminophen 325 MG TABLET PO PRN (13:29)
[2017-05-07] MEDS ORDERED: D5% in 0.45% NACL 1,000 ML IVC SCH (13:29)
[2017-05-07] MEDS ORDERED: Albuterol Neb 0.63 MG/3 ML VIAL IH PRN (13:29)
[2017-05-07] MEDS ORDERED: Naloxone 0.4 MG/ML INJ IVP PRN (13:29)
--- NOTE | 2017-05-07 13:34 | Internal Med Progress Note ---
Date of Encounter: 05/07/17 Time of Encounter: 13:32 - Assessment and plan (1) Osteomyelitis of foot, left, acute Current Visit: Yes Status: Acute Assessment and plan: s/p surgery (amputation of left great toe and I&D) podiatry on board and consultation appreciated continue IV abx f/u blood and wound cultures supportive care pain control wound care as per podiatry (2) Electrolyte abnormality Current Visit: Yes Status: Acute Assessment and plan: Hypomagnesemia Mg supplemented continue to monitor electrolytes and replace as needed (3) Acute kidney injury Current Visit: Yes Status: Acute Assessment and plan: Likely secondary to chronic NSAID therapy for arthritis renal function improving continue to hold Losartan and diclofenac avoid nephrotoxic agents renally dosing IV abx will closely monitor renal function Nephrology on board (4) COPD (chronic obstructive pulmonary disease) Current Visit: Yes Status: Acute Assessment and plan: not in acute exacerbation continue home medications (pt to bring home inhaler) Qualifiers: COPD type: unspecified COPD Qualified Code(s): J44.9 - Chronic obstructive pulmonary disease, unspecified (5) Arthritis Current Visit: Yes Status: Chronic Assessment and plan: tylenol prn pain avoid NSAIDs given renal function (6) HTN (hypertension) Current Visit: Yes Status: Chronic Assessment and plan: BP within acceptable range continue home meds holding Losartan will closely monitor BP Qualifiers: Hypertension type: essential hypertension Qualified Code(s): I10 - Essential (primary) hypertension (7) DVT prophylaxis Current Visit: Yes Status: Acute Assessment and plan: Heparin SQ (8) Hepatitis C Current Visit: Yes Status: Chronic Assessment and plan: continue home medications Qualifiers: Viral hepatitis chronicity: chronic Hepatic coma status: without hepatic coma Qualified Code(s): B18.2 - Chronic viral hepatitis C (9) Tobacco abuse Current Visit: Yes Status: Chronic Assessment and plan: smoking cessation counseling provided patient refused nicotine replacement therapy - Subjective Interval history: Patient seen and examined. s/p left toe amputation, I&D. Pt tolerated the procedure well and denies any discomfort at this time. Pt states due to his severe neuropathy, he usually does not feel any foot pain. Denies any other discomfort at this time. - Constitutional Vitals: Temp Pulse Resp BP Pulse Ox 97.0 F L 64 16 132/85 96 05/07/17 12:50 05/07/17 12:58 05/07/17 12:58 05/07/17 12:58 05/07/17 12:58 General appearance: Present: cooperative, pleasant, no acute distress, obese, answers questions appropriately - Head Head exam: Present: atraumatic, normocephalic - Eye Eye exam: Present: conjuntiva pink, sclera anicteric - Respiratory Respiratory exam: Present: CTAB. Absent: respiratory distress, wheezes - Cardiovascular Cardiovascular exam: Present: RRR, +S1, +S2. Absent: diastolic murmur, gallop, rubs, systolic murmur - GI/Abdominal GI/Abdominal exam: Present: normal bowel sounds, soft. Absent: distended, tenderness - Extremities Exam Extremities exam: Present: warm, radial pulses palpable and symmetrical. Absent : calf tenderness Additional comments: LLE wrapped in dressing - Neurological Exam Neurological exam: Present: alert, oriented X3 - Psychiatric Psychiatric exam: Present: normal affect, normal mood Internal Medicine: Result - Labs CBC & Chem 7: 05/07/17 05:14 05/07/17 05:14 Labs: Short CBC 05/07/17 Range/Units 05:14 WBC 7.7 (4.3-11.1) K/mcL Hgb 11.8 L (12.9-16.9) g/dL Hct 34.7 L (37.5-50.1) % Plt Count 172 (140-400) K/mcL Neutrophils # 3.2 (1.6-8.9) K/mcL BMP 05/07/17 05:14 Sodium 138 Potassium 3.9 Chloride 109 Carbon Dioxide 22 BUN 11 Creatinine 1.27 H Glucose 119 H Calcium 9.0 - ABG Interpretation ABG results: PT/INR, D-dimer PT 16.3 Seconds (9.4-12.1) H 05/06/17 05:21 - Impressions Impressions Foot X-Ray 05/07/17 12:23 IMPRESSION: Post amputation changes without complication. D/ / Yohannes Carroll MD / Yohannes Carroll MD Interpreting Provider: Yohannes Carroll MD Consult Discharge Plan - Plan Referrals: Cesar Bourgeois DO [Primary Care Provider] -
[2017-05-07] MEDS: 0.9 % Sodium Chloride 1,000 ML IVC SCH (14:04)
[2017-05-07] MEDS: ZEPATIER PO SCH (14:07)
[2017-05-07] MEDS: Magnesium Sulfate 1 GM in D5% in Water 100 ML IVPB SCH ×5 (14:40→20:59)
--- NOTE | 2017-05-07 14:49 | Orthopedic Operative Note ---
Date of procedure: 05/07/17 Pre-op diagnosis: #1 necrosis of soft tissue and bone left great toe Post-op diagnosis: same Procedure: 05/07/17 14:47 #1: Incision of bone cortex for osteomyelitis and debridement of multiple areas left foot. #2 amputation of toe #1 left great toe #3 placement of TLS drain, Implants: #1: TLS drain Complications: None Anesthesia: local, other (LMA) Local Anesthetics: 0.25% Sensorcaine HCL SubQ (cc) Surgeon: David Smith Estimated blood loss (cc): 10 Tourniquet Time (Minutes): 38 Specimen: Necrotic toe #1 left, bone culture tissue culture swab culture Condition: stable Disposition: PACU Procedure in Detail: 05/07/17 14:49 Details in summary of procedure: The patient was brought to surgical suite. The sign in procedure performed. Patient was then transferred to the surgical table and positioned properly safely securely. Left foot was elevated on a foam block. After smooth induction general anesthesia was achieved without difficulty. Left ankle was prepped with alcohol 3 times in an ankle block was carried out without difficulty or complication. A complete roll of cast padding was placed above the malleolus followed by an application of an ankle tourniquet. The left foot was then prepped and draped in usual sterile manner. A surgical timeout was taken. Left great toe was noted be completely necrotic with complete soft tissue necrosis full-thickness over the dorsal medial plantar aspect of the IP joint, left great toe.. There is a foul fetid odor, emanating from the wound. The wound was noted to encompass the dorsal medial and plantar aspect of the left great toe. Measuring, approximately, 4 cm in width and 3 cm in length. There is necrosis purulence and gangrenous changes to the soft tissue and bone. That juncture planned incision was drawn to the medial aspect of the first metatarsal and brought distally then circumferentially about the left great toe just proximal to the line of necrosis. The tourniquet was then inflated to 250 mmHg for approximately 38 minutes. The incision was then placed from proximal to distal with the dorsal flap being performed first and the plantar flap performed second. Incision made directly down to bone. The toe was disarticulated at the level of the MTPJ. There is normal appearance of joint fluid within the first MTPJ. There is no evidence of septic arthritis. After disarticulation of the toe and division of the extensor flexor tendons accordingly as well as the short flexor tendons of toes the toe was extirpated and sent to pathology. Portions of the infected bone were sent for culture as well as soft tissue culture. Swab cultures were also taken of the wound. After disarticulation of the toe remaining bone was of normal color texture density but we did not have enough soft tissue for complete coverage without tension. Therefore the dorsal and medial aspect of the first metatarsal were resected to create less tension over the distal flaps. The medial sesamoid were removed in order to facilitate further tension reduction. Flexor tendon was noted to have normal color texture density. The wound was thoroughly debrided of all suspicious and necrotic tissue. Excess flap was also remodeled as well with a #15 scalpel blade. An ultrasonics Misonix debrider was then used to debride the wound thoroughly. All remaining soft tissue was of normal color texture density. The tourniquet was released and immediate hyperemic response was noted in all bleeders were judiciously bovied. The flexor tendon was then sewn to the remaining lateral capsule with 3-0 Vicryl. The wound was sprayed with PRP and platelet poor plasma. TLS drain was placed closure was uneventful using 3-0 Prolene. [place] TLS drain which exited dorsal medial aspect of the foot with Steri-Strips. The wound was dressed with Adaptic 4 x 4' s and Kerlix and a mild compressive dressing. Complications encountered none patient was sent to PACU in good condition with vital signs stable after he was extubated. As per blood loss less than 10 mL complications none. 05/11/17 17:12
--- NOTE | 2017-05-07 17:52 | Nephrology Consult Note ---
Date of Encounter: 05/07/17 Time of Encounter: 17:49 Assessment and Plan (1) Acute kidney injury Current Visit: Yes Status: Acute Non-oliguric WILLIAM, improving. Suspect multifactorial etiology from infection, pre -renal, possibly nephrotoxin from Bactrim/NSAIDs and Losartan Rapidly improving with volume expansion and s/p amputation. He appears very stable tonight. No need for BID WRITER obviously, but would continue IVF another night. He is euvolemic on exam. If SCr improves further by tomorrow, then would stop the IVF soon. Continue to avoid NSAIDs and Losartan for now. Thank you for consulting the [facility]. Will follow with you. My colleague Dr. Flor will be on-call tomorrow. (2) Osteomyelitis of foot, left, acute Current Visit: Yes Status: Acute See above (3) HTN (hypertension) Current Visit: Yes Status: Chronic See above Qualifiers: Hypertension type: essential hypertension Qualified Code(s): I10 - Essential (primary) hypertension (4) Anemia Current Visit: Yes Status: Acute Monitor. Qualifiers: Anemia type: unspecified type Qualified Code(s): D64.9 - Anemia, unspecified (5) Hypomagnesemia Current Visit: Yes Status: Acute Replete. History of Present Illness - Reason for Consult Consult date: 05/06/17 Acute Kidney Injury Requesting physician: Cyndi Lopez - Chief Complaint WILLIAM - History of Present Illness Mendoza Valle is a very pleasant 56 y/o WM with a pmh of HCV, obesity, HTN and recent finding of a worsening foot wound who was admitted with osteomyelitis. Nephrology was consulted for WILLIAM. The pt was recently placed on Bactrim and takes an ARB. He did not affirm recent N/V/D or uremic symptoms. He said that he has not seen a language assistant in the past. There is a FHx of CKD ( his mother has seen my colleague Dr. Braxton in the past). He was off the floor and I had previously attempted to see him the last few days since being consulted. Podiatry has also assessed the pt. His was present at bedside. The pt did not affirm use of NSAID recently. Past Med Surg Social Fam HX - Past Medical History Medical history: arthritis, COPD, hepatitis, hypertension, other Psychiatric history: anxiety - Past Surgical History Surgical History: other - Social History Smoking Status: Current every day smoker Packs per day: 0.5 Smokeless Tobacco Status: No Alcohol use: none Drug use: none - Family History Father Living Status: Cause of : Lung and bladder Ca. Hx Family Cancer: Yes (Lung and bladder Ca.) Mother Living Status: Still Living Hx Family Cardiac Disorders: Yes (HTN) Medications and Allergies HYDROcodone/Acet 5/325 mg [[place] 5-325 mg] 1 tab PO Q6H PRN 12/20/15 [History] Losartan Potassium [Cozaar] 50 mg PO BID 12/20/15 [History] RX: Albuterol Sulfate [Albuterol Inhaler] 2 puff IH Q4H PRN 12/20/15 [History] RX: Diclofenac Sodium [Voltaren] 75 mg PO BID 12/20/15 [History] RX: Nadolol 20 mg PO DAILY 12/20/15 [History] Ranitidine HCl [Zantac] 150 mg PO BID PRN 12/20/15 [History] diazePAM [Diazepam] 10 mg PO TID 12/20/15 [History] Mupirocin [Bactroban Oint] 1 appl TP BID 7 Days 04/24/17 [Rx] Albuterol Neb [AccuNeb] 0.63 mg IH Q6H PRN 05/05/17 [History] Elbasvir/Grazoprevir [Zepatier 50-100 mg Tablet] 1 each PO DAILY 05/05/17 [ History] Umeclidinium Brm/Vilanterol Tr [Anoro Ellipta 62.5-25 Mcg INH] 1 each IH DAILY 05/05/17 [History] 3 Allergy/AdvReac Type Severity Reaction Status Date / Time Penicillins Allergy Swelling Verified 05/05/17 16:50 of Lip/Tongue/Throat Review of Systems All Systems: reviewed and no additional remarkable complaints except as stated Exam - Vital Signs Vital signs: Initial Vital Signs Temp Pulse Resp BP Pulse Ox 98.6 F 70 20 125/82 97 05/05/17 16:50 05/05/17 16:50 05/05/17 16:50 05/05/17 16:50 05/05/17 16:50 Vital Signs - Last 8 Hours Temp Pulse Resp BP Pulse Ox 05/07/17 13:55 97.6 F 61 18 113/67 98 05/07/17 12:58 64 16 132/85 96 05/07/17 12:50 97.0 F L 63 16 135/88 97 05/07/17 12:40 61 18 133/78 96 05/07/17 12:30 56 16 128/94 98 05/07/17 12:20 97.4 F L 67 16 148/99 98 Intake and Output 05/07/17 05/07/17 05/07/17 07:59 15:59 23:59 Intake Total 500 / 500 100 / 100 102 / 102 Output Total 1000 / 1000 570 / 570 Balance -500 / -500 -470 / -470 102 / 102 Intake: IV Fluids 500 / 500 100 / 100 102 / 102 D5% And 0.45% Nacl 1000 500 / 500 Ml Bag 1,000 ML @ 125 mls /hr IVC .Q8H DAMI Rx#: [id number] Magnesium Sulfate 1 GM In 100 / 100 102 / 102 Dextrose 5% 100 ML @ 100 mls/hr IVPB Q4H DAMI Rx#: [id number] Oral 0 / 0 0 / 0 Output: Urine 1000 / 1000 550 / 550 Estimated Blood Loss Other: Meal NPO Percent of Meal Consumed 0% # Voids 2 - General Appearance General appearance: well-developed, well-nourished, appears started age EENT: ATNC, PERRL, mucous membranes moist Neck: supple Respiratory: clear Cardiology: edema (trace pedal edema), regular rate, regular rhythm, normal S1, normal S2 Gastrointestinal: normoactive bowel sounds, no guarding, obese Additional Comments: Several skin tatts. Left foot was dressed in wrapping that was C/D/I Neurologic: no focal deficit, no asterixis Musculoskeletal: no cyanosis, no clubbing Psychiatric: mood/affect appropriate, cooperative Results - Lab Results 05/07/17 05:14 05/07/17 05:14 Most recent lab results Calcium 9.0 mg/dL (8.6-10.8) 05/07/17 05:14 Phosphorus 4.1 mg/dL (2.3-4.7) 05/07/17 05:14 Magnesium 1.1 mg/dL (1.6-2.6) L 05/07/17 05:14 I reviewed the above info, progress notes, labs, meds, vitals, imaging Consult Discharge Plan - Plan Referrals: Cesar Bourgeois DO [Primary Care Provider] -
[2017-05-07] MEDS: *HR* HYDROcodone/Acet 5/325 mg TABLET PO PRN (20:37)
[2017-05-08] MEDS: 0.9 % Sodium Chloride 1,000 ML IVC SCH (01:54)
[2017-05-08] MEDS: *HR* HYDROcodone/Acet 5/325 mg TABLET PO PRN ×2 (03:27→17:43)
[2017-05-08] MEDS: *HR* Heparin 5,000 UNIT/ML VIAL SQ SCH ×2 (05:37→21:55)
[2017-05-08 05:57] LABS: Basophils % 0.2 %; Eosinophils % 0.1 %; Hematocrit 33.3 % (37.5-50.1); Hemoglobin 11.5 g/dL (12.9-16.9); Immature Granulocytes % 0.5 % (0-4); Lymphocytes # 1.5 K/mcL (0.6-4.6); Lymphocytes % 11.7 %; Mean Corpuscular HGB Conc 34.5 g/dL (31.6-35.5); Mean Corpuscular Hemoglobin 32.8 pg (28.0-33.3); Mean Corpuscular Volume 94.9 fL (83.0-100.0); Mean Platelet Volume 10.1 fL (9.4-12.4); Monocytes # 0.8 K/mcL (0.0-1.3); Monocytes % 6.2 %; Platelet Count 153 K/mcL (140-400); Red Blood Count 3.51 M/mcL (4.19-5.50); Red Cell Distribution Width 12.7 % (11.5-14.5); Segmented Neutrophils % 81.3 %
[2017-05-08] MEDS ORDERED: Vancomycin 1,750 MG in D5% in Water 500 ML IVPB SCH (06:00)
[2017-05-08 06:08] LABS: Neutrophils # 10.3 K/mcL (1.6-8.9)
[2017-05-08 06:09] LABS: BUN/Creatinine Ratio 11 (6-26); Blood Urea Nitrogen 9 mg/dL (8-26); Calcium 8.5 mg/dL (8.6-10.8); Carbon Dioxide 22 mEq/L (19-29); Chloride 109 mEq/L (98-109); Glucose 166 mg/dL (70-99); Magnesium 1.4 mg/dL (1.6-2.6); Osmolality,Calculated 284 (280-300); Phosphorous 1.8 mg/dL (2.3-4.7); Potassium 4.5 mEq/L (3.5-4.5); Sodium 136 mEq/L (136-145); eGFR For African Americans > 60 (> 60); eGFR For Non-African Americans > 60 (> 60)
[2017-05-08] MEDS ORDERED: Vancomycin 1,250 MG in D5% in Water 250 ML IVPB SCH (06:30)
[2017-05-08] MEDS ORDERED: Magnesium Sulfate 2 GM in D5% in Water 100 ML IVPB ONE (08:08)
[2017-05-08] MEDS: diazePAM 10 MG TABLET PO SCH ×3 (08:31→21:55)
[2017-05-08] MEDS: Levofloxacin 750 MG/150 ML 750 MG/150 ML BAG IVPB SCH (08:31)
[2017-05-08] MEDS ORDERED: ANORO ELLIPTA IH SCH (09:00)
[2017-05-08] MEDS ORDERED: ZEPATIER PO SCH (09:00)
[2017-05-08] MEDS ORDERED: Vancomycin 750 MG in D5% in Water 250 ML IVPB ONE (10:00)
[2017-05-08] MEDS ORDERED: Ipratropium/Albuterol Neb 3 ML IH PRN (10:32)
[2017-05-08] MEDS: ZEPATIER PO SCH ×2 (13:56→14:00)
--- NOTE | 2017-05-08 15:09 | Internal Med Progress Note ---
Date of Encounter: 05/08/17 Time of Encounter: 15:08 - Assessment and plan (1) Osteomyelitis of foot, left, acute Current Visit: Yes Status: Acute Assessment and plan: s/p surgery (amputation of left great toe and I&D) podiatry on board and consultation appreciated continue IV abx f/u blood and wound cultures supportive care pain control wound care as per podiatry (2) Electrolyte abnormality Current Visit: Yes Status: Acute Assessment and plan: Hypomagnesemia, hypophosphatemia Mg and phos supplemented continue to monitor electrolytes and replace as needed (3) Acute kidney injury Current Visit: Yes Status: Resolved Assessment and plan: Likely secondary to chronic NSAID therapy for arthritis renal function back to baseline continue to hold Losartan and diclofenac avoid nephrotoxic agents renally dosing IV abx will closely monitor renal function Nephrology on board (4) COPD (chronic obstructive pulmonary disease) Current Visit: Yes Status: Acute Assessment and plan: not in acute exacerbation continue home medications (pt to bring home inhaler) Qualifiers: COPD type: unspecified COPD Qualified Code(s): J44.9 - Chronic obstructive pulmonary disease, unspecified (5) Arthritis Current Visit: Yes Status: Chronic Assessment and plan: tylenol prn pain avoid NSAIDs given renal function (6) HTN (hypertension) Current Visit: Yes Status: Chronic Assessment and plan: BP within acceptable range continue home meds holding Losartan will closely monitor BP Qualifiers: Hypertension type: essential hypertension Qualified Code(s): I10 - Essential (primary) hypertension (7) DVT prophylaxis Current Visit: Yes Status: Acute Assessment and plan: Heparin SQ (8) Hepatitis C Current Visit: Yes Status: Chronic Assessment and plan: continue home medications Qualifiers: Viral hepatitis chronicity: chronic Hepatic coma status: without hepatic coma Qualified Code(s): B18.2 - Chronic viral hepatitis C (9) Tobacco abuse Current Visit: Yes Status: Chronic Assessment and plan: smoking cessation counseling provided patient refused nicotine replacement therapy - Subjective Interval history: Patient seen and examined. s/p left toe amputation, I&D. Pt was reported to go off the floor and during my evaluation was noted to have been smoking. Extensive smoking cessation counseling was provided. Pt is to not leave the unit without supervision, patient and his in agreement. - Constitutional Vitals: Temp Pulse Resp BP Pulse Ox 97.6 F 77 15 120/70 92 05/08/17 07:22 05/08/17 07:22 05/08/17 07:22 05/08/17 07:22 05/08/17 07:22 General appearance: Present: A&O X 3, no acute distress, obese, answers questions appropriately - Head Head exam: Present: atraumatic, normocephalic - Eye Eye exam: Present: conjuntiva pink, sclera anicteric - Respiratory Respiratory exam: Present: CTAB. Absent: accessory muscle use, rales, rhonchi, wheezes - Cardiovascular Cardiovascular exam: Present: RRR, +S1, +S2. Absent: diastolic murmur, gallop, rubs, systolic murmur - GI/Abdominal GI/Abdominal exam: Present: normal bowel sounds, soft, no peritoneal signs. Absent: distended, tenderness - Extremities Exam Extremities exam: Present: warm, radial pulses palpable and symmetrical (left foot dressing intact). Absent: calf tenderness Internal Medicine: Result - Labs CBC & Chem 7: 05/08/17 05:25 05/08/17 05:25 Labs: Short CBC 05/08/17 Range/Units 05:25 WBC 12.7 H D (4.3-11.1) K/mcL Hgb 11.5 L (12.9-16.9) g/dL Hct 33.3 L (37.5-50.1) % Plt Count 153 (140-400) K/mcL Neutrophils # 10.3 H (1.6-8.9) K/mcL BMP 05/08/17 05:25 Sodium 136 Potassium 4.5 Chloride 109 Carbon Dioxide 22 BUN 9 Creatinine 0.83 Glucose 166 H Calcium 8.5 L - ABG Interpretation ABG results: PT/INR, D-dimer PT 16.3 Seconds (9.4-12.1) H 05/06/17 05:21 - Impressions Impressions Foot X-Ray 05/07/17 12:23 IMPRESSION: Post amputation changes without complication. D/ 05/07/2017 13:26:52 Yohannes Carroll MD / Latrice Dillon Interpreting Provider: Yohannes Carroll MD Consult Discharge Plan - Plan Referrals: Cesar Bourgeois DO [Primary Care Provider] -
--- NOTE | 2017-05-08 17:23 | Podiatry Progress Note ---
Date of Encounter: 05/08/17 Time of Encounter: 17:00 - Assessment and Plan (1) Osteomyelitis of foot, left, acute Current Visit: Yes Status: Acute Assessment: Acute open fracture of left great toe with osteomyelitis of distal and proximal phalanx of toe. 05/07 #1: Incision of bone cortex for osteomyelitis and debridement of multiple areas left foot. #2 amputation of toe #1 left great toe #3 placement of TLS drain per Plan: Continue vanc and levaquin- cultures obtained intraop- will likely need 6 weeks antibiotic therapy- bump in WBC expected post op- will continue to monitor Dressing changed at bedside, cleansed with saline, skin prep applied to macerated skin, 4x4 and kerlex. Reapplied post operative sock. If dressing change is needed please be careful not to cut or remove TLS drain. Please change vacutainer to TLS drain when it is no more than half full. - it will lose suction Sw on board for antibiotics after discharge Will follow through the weekend Subjective Interval history: post op day #1 Incision of bone cortex for osteomyelitis and debridement of multiple areas left foot, amputation of toe #1 left great toe, and placement of TLS drain per . Patient is resting up to chair on arrival. Denies any pain at this time. States he is doing well. Denies any fevers or chills, sob or chest pain. States he has been participating in therapy Objective - Vital Signs Vital Signs: Vital Signs Temp Pulse Resp BP Pulse Ox 05/08/17 07:22 97.6 F 77 15 120/70 92 05/08/17 03:24 97.6 F 72 17 111/56 94 05/07/17 23:46 98.0 F 75 17 133/75 96 05/07/17 19:40 97.7 F 75 17 177/74 96 Intake and Output 05/08/17 05/08/17 05/08/17 07:59 15:59 23:59 Intake Total 871 / 871 Output Total 425 / 425 1600 / 1600 Balance 446 / 446 -1600 / -1600 Intake: IV Fluids 871 / 871 0.9 % Sodium Chloride 1, 871 / 871 000 ML @ 75 mls/hr IVC . [id number] [facility] Rx#: [id number] Oral 0 / 0 Output: Urine 425 / 425 1600 / 1600 Other: Weight 119.2 kg Patient Weight 05/08/17 23:59 Weight 119.2 kg - Exam Exam: Podiatry General Exam: General appearance: alert awake oriented X 3. Calm and pleasant, no acute distress.. Vascular: Pedal pulses +2/4 DP/PT , No evidence of cyanosis, pallor or rubor, Edema graded at 1+/4, Skin Temperature warm, No calf pain with manual compression. capillary refill time is immediate to digits. Neurologic: Sensation to moderate touch. There is loss of protective sensation. Postop Exam: S/P Sutures intact to incision line, no signs of dehiscence. No open area, no drainage, no odor, no erythema, no streaking. Minimal edema. Very small amount of maceration noted. 3ml bloody drainage noted to TLS drain. - Lab Result Diagrams: 05/08/17 05:25 05/08/17 05:25 Labs: Abnormal lab results WBC 12.7 K/mcL (4.3-11.1) H D 05/08/17 05:25 RBC 3.51 M/mcL (4.19-5.50) L 05/08/17 05:25 Hgb 11.5 g/dL (12.9-16.9) L 05/08/17 05:25 Hct 33.3 % (37.5-50.1) L 05/08/17 05:25 Neutrophils # 10.3 K/mcL (1.6-8.9) H 05/08/17 05:25 PT 16.3 Seconds (9.4-12.1) H 05/06/17 05:21 Glucose 166 mg/dL (70-99) H 05/08/17 05:25 POC Glucose 146 (58-89) H 05/07/17 05:52 Calcium 8.5 mg/dL (8.6-10.8) L 05/08/17 05:25 Phosphorus 1.8 mg/dL (2.3-4.7) L D 05/08/17 05:25 Magnesium 1.4 mg/dL (1.6-2.6) L 05/08/17 05:25 AST 68 Units/L (5-34) H 05/05/17 18:41 Albumin 2.5 g/dL (3.5-5.0) L 05/05/17 18:41 Globulin 4.8 g/dL (2.4-3.5) H 05/05/17 18:41 Albumin/Globulin Ratio 0.5 (1.1-2.2) L 05/05/17 18:41 Vancomycin Trough 7.0 mcg/mL (10-20) L 05/08/17 05:25 Microbiology, Last 48 Hours 05/07/17 16:48 Surgical Biopsy Culture - Preliminary Left Great Toe 05/07/17 16:48 Surgical Biopsy Culture - Preliminary Left Great Toe Consult Discharge Plan - Plan Referrals: Cesar Bourgeois DO [Primary Care Provider] -
[2017-05-08] MEDS: D5% in 0.45% NACL 1,000 ML IVC SCH ×2 (19:42→23:56)
[2017-05-08] MEDS: Vancomycin 1,750 MG in D5% in Water 500 ML IVPB SCH (21:55)
[2017-05-09] MEDS: *HR* HYDROcodone/Acet 5/325 mg TABLET PO PRN ×4 (02:46→22:34)
[2017-05-09] MEDS: *HR* Heparin 5,000 UNIT/ML VIAL SQ SCH ×2 (06:21→18:28)
[2017-05-09] MEDS: Vancomycin 1,750 MG in D5% in Water 500 ML IVPB SCH ×2 (06:21→19:55)
[2017-05-09] MEDS: diazePAM 10 MG TABLET PO SCH ×3 (07:40→21:06)
[2017-05-09] MEDS: Levofloxacin 750 MG/150 ML 750 MG/150 ML BAG IVPB SCH (07:41)
--- NOTE | 2017-05-09 07:52 | Podiatry Progress Note ---
Date of Encounter: 05/09/17 Time of Encounter: 07:50 - Assessment and Plan (1) Osteomyelitis of foot, left, acute Current Visit: Yes Status: Acute Assessment: #1: Postop day #2 healing uneventfully without complication. No fever chills nausea vomiting. Follow-up white count pending increase in white count expected postop day 1. Serosanguineous drainage, present within TLS tube but overall reduction in the last 48 hours in amount of drainage., Plan: #1 continue present IV antibiotics until cultures have identified pathogens. Gram stain gram-positive cocci and gram-negative rods on tissue cultures. #2 dressing changes as ordered minimal weightbearing to heel only with assistance #3 placement an ECF for long-term IV antibiotics pending in the next 72 hours Subjective Principal diagnosis: Postoperative day #2 Interval history: #1 status post incision and drainage with amputation of great toe left foot.. No complaints of pain Objective - Vital Signs Vital Signs: Vital Signs Temp Pulse Resp BP Pulse Ox 05/09/17 03:59 97.8 F 57 16 133/63 96 05/08/17 20:54 98.4 F 67 16 146/78 96 05/08/17 17:05 97.5 F L 78 15 122/64 97 Intake and Output 05/08/17 05/08/17 05/09/17 15:59 23:59 07:59 Intake Total 150 / 150 500 / 500 0 / 0 Output Total 1650 / 1650 500 / 500 5 / 5 Balance -1500 / -1500 0 / 0 -5 / -5 Intake: IV Fluids 150 / 150 500 / 500 Levaquin Premix 750mg/150 150 / 150 mL 750 mg In 150 ml @ 100 mls/hr IVPB DAILY [facility] Rx#:[id number] Vancocin 1,750 MG In 500 / 500 Dextrose 5% 500 ML @ 333. 34 mls/hr IVPB Q12H [facility] Rx#:[id number] Oral 0 / 0 0 / 0 Output: Urine 1600 / 1600 500 / 500 0 / 0 Wound Drainage 50 / 50 5 / 5 Right Foot 50 / 50 5 / 5 Other: # Voids 2 Weight 119.4 kg Patient Weight 05/09/17 23:59 Weight 119.4 kg - Exam Exam: No odor, minimal shadow drainage expected. 5 mL of drainage within the TLS drain over last 12-18 hours. Incision: Present: healing, inflamed Capillary Refill: less than 3 seconds (Of lateral digits, #2 #3 #4 #5 left foot. ) - Lab Result Diagrams: 05/08/17 05:25 05/08/17 05:25 Labs: Abnormal lab results WBC 12.7 K/mcL (4.3-11.1) H D 05/08/17 05:25 RBC 3.51 M/mcL (4.19-5.50) L 05/08/17 05:25 Hgb 11.5 g/dL (12.9-16.9) L 05/08/17 05:25 Hct 33.3 % (37.5-50.1) L 05/08/17 05:25 Neutrophils # 10.3 K/mcL (1.6-8.9) H 05/08/17 05:25 PT 16.3 Seconds (9.4-12.1) H 05/06/17 05:21 Glucose 166 mg/dL (70-99) H 05/08/17 05:25 POC Glucose 146 (58-89) H 05/07/17 05:52 Calcium 8.5 mg/dL (8.6-10.8) L 05/08/17 05:25 Phosphorus 1.8 mg/dL (2.3-4.7) L D 05/08/17 05:25 Magnesium 1.4 mg/dL (1.6-2.6) L 05/08/17 05:25 AST 68 Units/L (5-34) H 05/05/17 18:41 Albumin 2.5 g/dL (3.5-5.0) L 05/05/17 18:41 Globulin 4.8 g/dL (2.4-3.5) H 05/05/17 18:41 Albumin/Globulin Ratio 0.5 (1.1-2.2) L 05/05/17 18:41 Vancomycin Trough 7.0 mcg/mL (10-20) L 05/08/17 05:25 Microbiology, Last 48 Hours 05/07/17 16:48 Wound Culture - Preliminary Left Great Toe No pathogens isolated. 05/07/17 16:48 Surgical Biopsy Culture - Preliminary Left Great Toe 05/07/17 16:48 Surgical Biopsy Culture - Preliminary Left Great Toe Consult Discharge Plan - Plan Referrals: Cesar Bourgeois DO [Primary Care Provider] -
[2017-05-09] MEDS: Famotidine 20 MG TABLET PO PRN (11:25)
[2017-05-09] MEDS ORDERED: Magnesium Sulfate 2 GM in D5% in Water 100 ML IVPB ONE (12:17)
--- NOTE | 2017-05-09 12:18 | Internal Med Progress Note ---
Date of Encounter: 05/09/17 Time of Encounter: 12:16 - Assessment and plan (1) Osteomyelitis of foot, left, acute Current Visit: Yes Status: Acute Assessment and plan: s/p surgery (amputation of left great toe and I&D) podiatry on board and consultation appreciated continue IV abx f/u blood and wound cultures supportive care pain control wound care as per podiatry (2) Electrolyte abnormality Current Visit: Yes Status: Acute Assessment and plan: Hypomagnesemia, hypophosphatemia Mg and phos supplemented continue to monitor electrolytes and replace as needed (3) Acute kidney injury Current Visit: Yes Status: Resolved Assessment and plan: Likely secondary to chronic NSAID therapy for arthritis renal function back to baseline continue to hold Diclofenac avoid nephrotoxic agents renally dosing IV abx will closely monitor renal function Nephrology on board (4) COPD (chronic obstructive pulmonary disease) Current Visit: Yes Status: Acute Assessment and plan: not in acute exacerbation continue home medications Qualifiers: COPD type: unspecified COPD Qualified Code(s): J44.9 - Chronic obstructive pulmonary disease, unspecified (5) Arthritis Current Visit: Yes Status: Chronic Assessment and plan: tylenol prn pain avoid NSAIDs given renal function (6) HTN (hypertension) Current Visit: Yes Status: Chronic Assessment and plan: BP within acceptable range continue home meds restarted Losartan will closely monitor BP Qualifiers: Hypertension type: essential hypertension Qualified Code(s): I10 - Essential (primary) hypertension (7) DVT prophylaxis Current Visit: Yes Status: Acute Assessment and plan: Heparin SQ (8) Hepatitis C Current Visit: Yes Status: Chronic Assessment and plan: continue home medications Qualifiers: Viral hepatitis chronicity: chronic Hepatic coma status: without hepatic coma Qualified Code(s): B18.2 - Chronic viral hepatitis C (9) Tobacco abuse Current Visit: Yes Status: Chronic Assessment and plan: smoking cessation counseling provided patient refused nicotine replacement therapy - Subjective Interval history: Patient seen and examined. s/p left toe amputation, I&D. Resting in bed and denies any pain. Participating with physical therapy and will need ECF placement for chcf IV abx as per podiatry. No overnight issues reported. - Constitutional Vitals: Temp Pulse Resp BP Pulse Ox 97.5 F L 61 16 152/82 96 05/09/17 11:16 05/09/17 11:16 05/09/17 11:16 05/09/17 11:16 05/09/17 11:16 General appearance: Present: A&O X 3, no acute distress, obese, answers questions appropriately - Head Head exam: Present: atraumatic, normocephalic - Eye Eye exam: Present: conjuntiva pink, sclera anicteric - Respiratory Respiratory exam: Present: CTAB. Absent: respiratory distress, wheezes - Cardiovascular Cardiovascular exam: Present: RRR, +S1, +S2. Absent: diastolic murmur, gallop, rubs, systolic murmur - GI/Abdominal GI/Abdominal exam: Present: normal bowel sounds, soft, no peritoneal signs. Absent: distended, tenderness - Extremities Exam Extremities exam: Present: warm, radial pulses palpable and symmetrical (left foot dressing intact ). Absent: calf tenderness - Neurological Exam Neurological exam: Present: alert, oriented X3 Internal Medicine: Result - Labs CBC & Chem 7: 05/08/17 05:25 05/08/17 05:25 - ABG Interpretation ABG results: PT/INR, D-dimer PT 16.3 Seconds (9.4-12.1) H 05/06/17 05:21 Consult Discharge Plan - Plan Referrals: Cesar Bourgeois DO [Primary Care Provider] -
[2017-05-09] MEDS: ZEPATIER PO SCH (14:24)
[2017-05-10 05:08] LABS: Basophils # 0.1 K/mcL (0.0-0.2); Basophils % 1.1 %; Eosinophils # 0.3 K/mcL (0.0-0.6); Eosinophils % 4.4 %; Hematocrit 33.7 % (37.5-50.1); Hemoglobin 11.4 g/dL (12.9-16.9); Immature Granulocytes % 0.5 % (0-4); Lymphocytes # 3.3 K/mcL (0.6-4.6); Mean Corpuscular HGB Conc 33.8 g/dL (31.6-35.5); Mean Corpuscular Hemoglobin 32.4 pg (28.0-33.3); Mean Corpuscular Volume 95.7 fL (83.0-100.0); Mean Platelet Volume 10.3 fL (9.4-12.4); Monocytes # 0.6 K/mcL (0.0-1.3); Monocytes % 7.8 %; Neutrophils # 3.3 K/mcL (1.6-8.9); Platelet Count 142 K/mcL (140-400); Red Blood Count 3.52 M/mcL (4.19-5.50); Red Cell Distribution Width 12.8 % (11.5-14.5); Segmented Neutrophils % 43.2 %
[2017-05-10 05:24] LABS: BUN/Creatinine Ratio 8 (6-26); Blood Urea Nitrogen 9 mg/dL (8-26); Calcium 8.4 mg/dL (8.6-10.8); Carbon Dioxide 26 mEq/L (19-29); Chloride 107 mEq/L (98-109); Glucose 122 mg/dL (70-99); Magnesium 1.4 mg/dL (1.6-2.6); Osmolality,Calculated 286 (280-300); Potassium 3.6 mEq/L (3.5-4.5); Sodium 138 mEq/L (136-145); eGFR For African Americans > 60 (> 60); eGFR For Non-African Americans > 60 (> 60)
[2017-05-10 05:30] LABS: Phosphorous 4.7 mg/dL (2.3-4.7)
[2017-05-10] MEDS ORDERED: Magnesium Sulfate 2 GM in D5% in Water 100 ML IVPB ONE (08:23)
[2017-05-10] MEDS: Levofloxacin 750 MG/150 ML 750 MG/150 ML BAG IVPB SCH (08:36)
[2017-05-10] MEDS: diazePAM 10 MG TABLET PO SCH ×3 (08:38→21:24)
[2017-05-10] MEDS: Vancomycin 1,750 MG in D5% in Water 500 ML IVPB SCH ×2 (08:38→17:45)
[2017-05-10] MEDS: *HR* HYDROcodone/Acet 5/325 mg TABLET PO PRN ×3 (08:39→21:24)
[2017-05-10] MEDS: *HR* Heparin 5,000 UNIT/ML VIAL SQ SCH ×2 (09:00→17:45)
--- NOTE | 2017-05-10 11:45 | Internal Med Progress Note ---
Date of Encounter: 05/10/17 Time of Encounter: 11:43 - Assessment and plan (1) Osteomyelitis of foot, left, acute Current Visit: Yes Status: Acute Assessment and plan: s/p surgery (amputation of left great toe and I&D) podiatry on board and consultation appreciated continue IV abx f/u blood and wound cultures supportive care pain control wound care as per podiatry (2) Electrolyte abnormality Current Visit: Yes Status: Acute Assessment and plan: Hypomagnesemi Mg supplemented continue to monitor electrolytes and replace as needed (3) Acute kidney injury Current Visit: Yes Status: Resolved Assessment and plan: Likely secondary to chronic NSAID therapy for arthritis renal function back to baseline continue to hold Diclofenac avoid nephrotoxic agents renally dosing IV abx will closely monitor renal function Nephrology on board (4) COPD (chronic obstructive pulmonary disease) Current Visit: Yes Status: Acute Assessment and plan: not in acute exacerbation continue home medications Qualifiers: COPD type: unspecified COPD Qualified Code(s): J44.9 - Chronic obstructive pulmonary disease, unspecified (5) Arthritis Current Visit: Yes Status: Chronic Assessment and plan: tylenol prn pain avoid NSAIDs given renal function (6) HTN (hypertension) Current Visit: Yes Status: Chronic Assessment and plan: BP within acceptable range continue home meds will closely monitor BP Qualifiers: Hypertension type: essential hypertension Qualified Code(s): I10 - Essential (primary) hypertension (7) DVT prophylaxis Current Visit: Yes Status: Acute Assessment and plan: Heparin SQ (8) Hepatitis C Current Visit: Yes Status: Chronic Assessment and plan: continue home medications Qualifiers: Viral hepatitis chronicity: chronic Hepatic coma status: without hepatic coma Qualified Code(s): B18.2 - Chronic viral hepatitis C (9) Tobacco abuse Current Visit: Yes Status: Chronic Assessment and plan: smoking cessation counseling provided patient refused nicotine replacement therapy - Subjective Interval history: Patient seen and examined. s/p left toe amputation, I&D. Patient noted to have a pack of cigarettes on his table and got extremely agitated and hostile when told that he cannot smoke while he is hospitalized. He was inappropriate and rude and said that Dr. Smith is his doctor and allowed him to leave the unit for a smoke. Pt is counseled against cigarette use while hospitalized and he is informed that he will not be allowed to leave the unit for a smoke. No overnight events reported - Constitutional Vitals: Temp Pulse Resp BP Pulse Ox 98.1 F 66 16 128/75 96 05/10/17 11:12 05/10/17 11:12 05/10/17 11:12 05/10/17 11:12 05/10/17 11:12 General appearance: Present: A&O X 3, no acute distress, obese, answers questions appropriately. Absent: cooperative - Head Head exam: Present: atraumatic, normocephalic - Eye Eye exam: Present: conjuntiva pink, sclera anicteric - Respiratory Respiratory exam: Present: CTAB. Absent: accessory muscle use, rales, rhonchi, wheezes - Cardiovascular Cardiovascular exam: Present: RRR, +S1, +S2. Absent: diastolic murmur, gallop, rubs, systolic murmur - GI/Abdominal GI/Abdominal exam: Present: normal bowel sounds, soft, no peritoneal signs. Absent: distended, tenderness - Extremities Exam Extremities exam: Present: warm, radial pulses palpable and symmetrical. Absent : calf tenderness (left foot dressing intact ) - Neurological Exam Neurological exam: Present: alert, oriented X3 Internal Medicine: Result - Labs CBC & Chem 7: 05/10/17 04:00 05/10/17 04:00 Labs: Short CBC 05/10/17 Range/Units 04:00 WBC 7.6 (4.3-11.1) K/mcL Hgb 11.4 L (12.9-16.9) g/dL Hct 33.7 L (37.5-50.1) % Plt Count 142 (140-400) K/mcL Neutrophils # 3.3 (1.6-8.9) K/mcL BMP 05/10/17 04:00 Sodium 138 Potassium 3.6 Chloride 107 Carbon Dioxide 26 BUN 9 Creatinine 1.12 Glucose 122 H Calcium 8.4 L - ABG Interpretation ABG results: PT/INR, D-dimer PT 16.3 Seconds (9.4-12.1) H 05/06/17 05:21 Consult Discharge Plan - Plan Referrals: Cesar Bourgeois DO [Primary Care Provider] -
[2017-05-10] MEDS: ZEPATIER PO SCH (14:12)
[2017-05-10] MEDS: Magnesium Oxide 400 MG TABLET PO SCH (21:24)
[2017-05-10] MEDS: Famotidine 20 MG TABLET PO PRN (21:29)
[2017-05-11] MEDS: *HR* Heparin 5,000 UNIT/ML VIAL SQ SCH ×2 (05:20→18:51)
[2017-05-11 05:45] LABS: Basophils # 0.1 K/mcL (0.0-0.2); Basophils % 1.3 %; Eosinophils # 0.4 K/mcL (0.0-0.6); Eosinophils % 5.9 %; Hematocrit 33.7 % (37.5-50.1); Hemoglobin 11.6 g/dL (12.9-16.9); Immature Granulocytes % 0.4 % (0-4); Lymphocytes # 3.3 K/mcL (0.6-4.6); Lymphocytes % 45.8 %; Mean Corpuscular HGB Conc 34.4 g/dL (31.6-35.5); Mean Corpuscular Hemoglobin 32.6 pg (28.0-33.3); Mean Corpuscular Volume 94.7 fL (83.0-100.0); Mean Platelet Volume 10.6 fL (9.4-12.4); Monocytes # 0.5 K/mcL (0.0-1.3); Monocytes % 7.3 %; Neutrophils # 2.8 K/mcL (1.6-8.9); Platelet Count 142 K/mcL (140-400); Red Blood Count 3.56 M/mcL (4.19-5.50); Red Cell Distribution Width 12.8 % (11.5-14.5); Segmented Neutrophils % 39.3 %
[2017-05-11 06:00] LABS: BUN/Creatinine Ratio 8 (6-26); Blood Urea Nitrogen 8 mg/dL (8-26); Calcium 8.9 mg/dL (8.6-10.8); Carbon Dioxide 25 mEq/L (19-29); Chloride 105 mEq/L (98-109); Glucose 167 mg/dL (70-99); Magnesium 1.2 mg/dL (1.6-2.6); Osmolality,Calculated 284 (280-300); Phosphorous 4.1 mg/dL (2.3-4.7); Potassium 3.8 mEq/L (3.5-4.5); Sodium 136 mEq/L (136-145); eGFR For African Americans > 60 (> 60); eGFR For Non-African Americans > 60 (> 60)
[2017-05-11] MEDS: Magnesium Oxide 400 MG TABLET PO SCH ×2 (08:59→20:38)
[2017-05-11] MEDS: diazePAM 10 MG TABLET PO SCH ×3 (08:59→20:37)
[2017-05-11] MEDS: levoFLOXacin 750 MG TABLET PO SCH (08:59)
[2017-05-11] MEDS: *HR* HYDROcodone/Acet 5/325 mg TABLET PO PRN ×3 (09:11→21:37)
--- NOTE | 2017-05-11 12:21 | Podiatry Progress Note ---
Date of Encounter: 05/11/17 Time of Encounter: 10:00 - Assessment and Plan (1) Osteomyelitis of foot, left, acute Current Visit: Yes Status: Acute Assessment: s/p Incision of bone cortex for osteomyelitis and debridement of multiple areas left foot, amputation of toe #1 left great toe, placement of TLS drain, on by Dr. Smith. Incision line well approximated with TLS drain intact, 2 cc of serous drainage observed to tube. Cellulitis has resolved. Intraop cultures pending; preliminary GPR WBC: 7.1 and a febrile. Plan: TLS drain removed at bedside with out difficulty. Incision line irrigated with saline, pat dry, apply adaptic, dry sterile 4x4 gauze and kerlix, continue dressing changes daily. Minimize weight bearing, use post op shoe. Awaiting ECF placement for intermediate project manager IV antibiotics. Infectious disease consulted for antibiotic recommendations. Patient will need a 1 week f/u in Podiatry clinic. Subjective Principal diagnosis: Postoperative day #2 Interval history: Patient is s/p Incision of bone cortex for osteomyelitis and debridement of multiple areas left foot, amputation of toe #1 left great toe, placement of TLS drain on 05/07/[address] Smith. Patient is sitting up in bed with dressing dry and intact with TLS drain, 2 cc of serous drainage noted to tube. Per nursing record total output for 05/10/17 was 3 cc. Patient denies any pain currently. No c/o fever, chills, or calf pain. Objective - Vital Signs Vital Signs: Vital Signs Temp Pulse Resp BP Pulse Ox 05/11/17 10:39 98.3 F 76 18 160/81 95 05/11/17 07:22 98.0 F 68 16 130/80 96 05/11/17 04:38 97.6 F 72 18 110/57 95 05/11/17 00:45 98.2 F 68 18 125/63 96 05/10/17 18:58 98.0 F 69 18 132/71 94 05/10/17 15:03 98.0 F 70 18 109/73 95 Intake and Output 05/10/17 05/11/17 05/11/17 23:59 07:59 15:59 Intake Total 740 / 740 200 / 200 1532 / 1532 Output Total 403 / 403 1350 / 1350 400 / 400 Balance 337 / 337 -1150 / -1150 1132 / 1132 Intake: IV Fluids 500 / 500 812 / 812 Vancocin 1,750 MG In 500 / 500 Dextrose 5% 500 ML @ 333. 34 mls/hr IVPB Q12H [facility] [place] Rx#:[id number] Oral 240 / 240 200 / 200 720 / 720 Output: Urine 400 / 400 1350 / 1350 400 / 400 Wound Drainage 3 / 3 Right Foot 3 / 3 Other: Meal Dinner Breakfast Percent of Meal Consumed 100% 75% # Voids 1 1 Weight 119.53 kg Patient Weight 05/11/17 23:59 Weight 119.53 kg - Exam Exam: General appearance: alert awake oriented X 3. Calm and pleasant, no acute distress.. Vascular: Pedal pulses +2/4 DP/PT , No evidence of cyanosis, pallor or rubor, Edema graded at 1+/4, Skin Tempature warm, No calf pain with manual compression. capillary refill time is immediate to digits. Neurologic: Sensation intact with light touch to foot. . Postop Exam: S/P Sutures intact to incision line, no signs of dehiscence. TLS drain intact, 2 cc of serous drainage observed to tube. No open area, no odor, no erythema, no streaking, no fluctuance. Minimal edema. - Lab Result Diagrams: 05/11/17 05:00 05/11/17 05:00 Labs: Abnormal lab results RBC 3.56 M/mcL (4.19-5.50) L 05/11/17 05:00 Hgb 11.6 g/dL (12.9-16.9) L 05/11/17 05:00 Hct 33.7 % (37.5-50.1) L 05/11/17 05:00 PT 16.3 Seconds (9.4-12.1) H 05/06/17 05:21 Glucose 167 mg/dL (70-99) H 05/11/17 05:00 POC Glucose 146 (58-89) H 05/07/17 05:52 Magnesium 1.2 mg/dL (1.6-2.6) L 05/11/17 05:00 AST 68 Units/L (5-34) H 05/05/17 18:41 Albumin 2.5 g/dL (3.5-5.0) L 05/05/17 18:41 Globulin 4.8 g/dL (2.4-3.5) H 05/05/17 18:41 Albumin/Globulin Ratio 0.5 (1.1-2.2) L 05/05/17 18:41 Vancomycin Trough 22.9 mcg/mL (10-20) H* 05/11/17 05:00 Microbiology, Last 48 Hours 05/07/17 16:48 Surgical Biopsy Culture - Preliminary Left Great Toe Gram Positive Rods 05/08/17 08:28 Blood Culture - Preliminary Peripheral Venipuncture No growth. 05/08/17 08:20 Blood Culture - Preliminary Peripheral Venipuncture No growth. 05/07/17 16:48 Surgical Biopsy Culture - Preliminary Left Great Toe Gram Positive Rods 05/07/17 16:48 Wound Culture - Final Left Great Toe No pathogens isolated. Consult Discharge Plan - Plan Referrals: Cesar Bourgeois DO [Primary Care Provider] -
[2017-05-11] MEDS: ZEPATIER PO SCH (14:09)
--- NOTE | 2017-05-11 18:32 | Internal Med Progress Note ---
Date of Encounter: 05/11/17 Time of Encounter: 18:29 - Assessment and plan (1) Osteomyelitis of foot, left, acute Current Visit: Yes Status: Acute (2) Acute kidney injury Current Visit: Yes Status: Resolved (3) COPD (chronic obstructive pulmonary disease) Current Visit: Yes Status: Acute Qualifiers: COPD type: unspecified COPD Qualified Code(s): J44.9 - Chronic obstructive pulmonary disease, unspecified (4) HTN (hypertension) Current Visit: Yes Status: Chronic Qualifiers: Hypertension type: essential hypertension Qualified Code(s): I10 - Essential (primary) hypertension (5) Hepatitis C Current Visit: Yes Status: Chronic Qualifiers: Viral hepatitis chronicity: chronic Hepatic coma status: without hepatic coma Qualified Code(s): B18.2 - Chronic viral hepatitis C - Subjective Interval history: Patient was seen by Dr. Bustillo last 4 days. I saw him only for one day today. Apparently he came in with foot infection was diagnosed with osteomyelitis and underwent surgery by podiatry Dr. Smith. He is on IV vancomycin and waiting for culture report to adjust antibiotics. After that he will go to long-term which has not been arranged yet. On admission he had acute kidney injury seems to be improving. Otherwise he is doing fine. Labs reviewed. On chest examination breast sounds are shallow. He is a smoker and uses inhalers at home. I will add nebulizer treatment during this admission. - Constitutional Vitals: Temp Pulse Resp BP Pulse Ox 97.9 F 71 18 144/81 93 05/11/17 15:44 05/11/17 15:44 05/11/17 15:44 05/11/17 15:44 05/11/17 15:44 General appearance: Present: A&O X 3, no acute distress, obese, answers questions appropriately. Absent: cooperative - Head Head exam: Present: atraumatic, normocephalic - Eye Eye exam: Present: PERRL, conjuntiva pink, sclera anicteric Pupils: Present: PERRL - Neck Neck exam general surgery: Present: supple, trachea midline. Absent: lymphadenopathy - Respiratory Respiratory exam: Present: decreased breath sounds. Absent: accessory muscle use, rales, rhonchi, wheezes - Cardiovascular Cardiovascular exam: Present: RRR, +S1, +S2. Absent: diastolic murmur, gallop, rubs, systolic murmur - GI/Abdominal GI/Abdominal exam: Present: normal bowel sounds, soft, no peritoneal signs. Absent: distended, tenderness - Extremities Exam Extremities exam: Present: warm, radial pulses palpable and symmetrical. Absent : calf tenderness, cyanotic, pedal edema Additional comments: foot Examination per podiatry - Neurological Exam Neurological exam: Present: CN II-XII intact, oriented X3, no focal deficits. Absent: pronater drift, facial droop, speech deficit - Skin Skin exam: Present: dry, intact Internal Medicine: Result - Labs CBC & Chem 7: 05/11/17 05:00 05/11/17 05:00 Labs: Short CBC 05/11/17 Range/Units 05:00 WBC 7.1 (4.3-11.1) K/mcL Hgb 11.6 L (12.9-16.9) g/dL Hct 33.7 L (37.5-50.1) % Plt Count 142 (140-400) K/mcL Neutrophils # 2.8 (1.6-8.9) K/mcL BMP 05/11/17 05:00 Sodium 136 Potassium 3.8 Chloride 105 Carbon Dioxide 25 BUN 8 Creatinine 1.02 Glucose 167 H Calcium 8.9 - ABG Interpretation ABG results: PT/INR, D-dimer PT 16.3 Seconds (9.4-12.1) H 05/06/17 05:21 Consult Discharge Plan - Plan Referrals: Cesar Bourgeois DO [Primary Care Provider] -
[2017-05-11] MEDS ORDERED: Albuterol 2.5 MG/3 ML NEBULIZER IH PRN (18:34)
[2017-05-11] MEDS: Ipratropium/Albuterol Neb 3 ML IH SCH ×2 (19:30→23:31)
[2017-05-11] MEDS: Vancomycin 1,250 MG in D5% in Water 250 ML IVPB SCH (20:35)
[2017-05-11] MEDS: Famotidine 20 MG TABLET PO PRN (20:38)
[2017-05-12] MEDS: Ipratropium/Albuterol Neb 3 ML IH SCH ×4 (03:44→20:50)
[2017-05-12] MEDS: *HR* HYDROcodone/Acet 5/325 mg TABLET PO PRN ×3 (04:29→21:57)
[2017-05-12] MEDS: *HR* Heparin 5,000 UNIT/ML VIAL SQ SCH ×2 (04:30→18:13)
[2017-05-12 04:53] LABS: Basophils # 0.1 K/mcL (0.0-0.2); Basophils % 1.2 %; Eosinophils # 0.4 K/mcL (0.0-0.6); Eosinophils % 5.4 %; Hematocrit 32.7 % (37.5-50.1); Immature Granulocytes % 0.4 % (0-4); Lymphocytes # 3.4 K/mcL (0.6-4.6); Lymphocytes % 45.7 %; Mean Corpuscular HGB Conc 33.6 g/dL (31.6-35.5); Mean Corpuscular Hemoglobin 31.7 pg (28.0-33.3); Mean Corpuscular Volume 94.2 fL (83.0-100.0); Mean Platelet Volume 10.3 fL (9.4-12.4); Monocytes # 0.7 K/mcL (0.0-1.3); Monocytes % 9.8 %; Neutrophils # 2.8 K/mcL (1.6-8.9); Platelet Count 130 K/mcL (140-400); Red Blood Count 3.47 M/mcL (4.19-5.50); Red Cell Distribution Width 12.6 % (11.5-14.5); Segmented Neutrophils % 37.5 %
[2017-05-12 05:02] LABS: Alanine Aminotransferase 56 Units/L (0-55); Albumin 2.4 g/dL (3.5-5.0); Albumin/Globulin Ratio 0.6 (1.1-2.2); Alkaline Phosphatase 105 Units/L (38-126); Aspartate Amino Transferase 70 Units/L (5-34); BUN/Creatinine Ratio 7 (6-26); Bilirubin,Total 0.9 mg/dL (0.2-1.2); Blood Urea Nitrogen 8 mg/dL (8-26); Calcium 8.8 mg/dL (8.6-10.8); Carbon Dioxide 26 mEq/L (19-29); Chloride 104 mEq/L (98-109); Globulin 3.8 g/dL (2.4-3.5); Glucose 171 mg/dL (70-99); Osmolality,Calculated 286 (280-300); Potassium 3.5 mEq/L (3.5-4.5); Sodium 137 mEq/L (136-145); Total Protein 6.2 g/dL (6.0-8.3); eGFR For African Americans > 60 (> 60); eGFR For Non-African Americans > 60 (> 60)
[2017-05-12] MEDS: Vancomycin 1,250 MG in D5% in Water 250 ML IVPB SCH ×2 (07:34→21:55)
[2017-05-12] MEDS: levoFLOXacin 750 MG TABLET PO SCH (07:38)
[2017-05-12] MEDS: diazePAM 10 MG TABLET PO SCH ×3 (07:39→21:57)
[2017-05-12] MEDS: Magnesium Oxide 400 MG TABLET PO SCH ×2 (07:39→21:57)
--- NOTE | 2017-05-12 08:45 | Infectious Disease Progress No ---
Date of Encounter: 05/12/17 Time of Encounter: 14:19 - Assessment and Plan (1) Osteomyelitis of foot, left, acute Current Visit: Yes Status: Acute Location: Left great toe. Causative organism unclear. Intra-operative tissue/bone culture pending, but gram stain shows abundant GPR. Anaerobic culture is positive for GNR and GPC. Final ID and sensitivities are pending. Secondary to traumatic injury. Failed outpatient oral antibiotics (Bactrim). Foot XR in the ED showed an acute, open, comminuted great toe proximal phalanx fracture with erosive changes of the great toe and distal and proximal phalanges consistent with osteomyelitis. Podiatry consulted and the patient went to the OR in 05/07/17. Status post I & D with amputation of the left great toe and TLS drain placement by Dr. Smith. Operative report reviewed. Intra-op cultures are pending. Blood cultures are NGTD. ESR is mildly elevated. CRP is pending. Continue Vancomycin IV. Pharmacy to dose. Goal trough ~15. Continue Levaquin 750mg daily, would recommend keeping IV while hospitalized. Start Metronidazole 500mg PO TID. Continue wound care and activity restrictions per the podiatry team. Duration of treatment depends on the clinical picture. Monitor renal function and for drug toxicity and dose-adjust antibiotics. Status post PICC line placement 05/08/17. (2) Acute kidney injury Current Visit: Yes Status: Resolved Likely multifactorial: infection + NSAID + nephrotoxic medications RP UTS negative. Nephrology consulted and signed off. Resolved. Continue to trend. Dose-adjust antibiotics. Avoid nephrotoxins as able. (3) COPD (chronic obstructive pulmonary disease) Current Visit: Yes Status: Chronic Qualifiers: COPD type: unspecified COPD Qualified Code(s): J44.9 - Chronic obstructive pulmonary disease, unspecified (4) HTN (hypertension) Current Visit: Yes Status: Chronic Qualifiers: Hypertension type: essential hypertension Qualified Code(s): I10 - Essential (primary) hypertension (5) Hepatitis C Current Visit: Yes Status: Chronic Currently on treatment. Qualifiers: Viral hepatitis chronicity: chronic Hepatic coma status: without hepatic coma Qualified Code(s): B18.2 - Chronic viral hepatitis C (6) Tobacco abuse Current Visit: Yes Status: Chronic - Subjective Interval history: Patient seen and examined. No acute events noted overnight. Patient resting quietly in bed with eyes closed, awakens easily. States overall he feels well. Denies any acute complaints. States he continues to have subjective fevers and chills and nausea that he was having prior to his toe injury. States his appetite is good. Denies pain at the surgical site. Denies oral thrush or new skin lesions. Denies diarrhea or abdominal pain. Infect Dis PN-Objective Data - Labs CBC & Chem 7: 05/12/17 04:25 05/12/17 04:25 Labs: Laboratory Results - last 24 hr 05/11/17 05/12/17 05/12/17 18:19 04:25 04:25 WBC 7.5 RBC 3.47 L Hgb 11.0 L Hct 32.7 L MCV 94.2 MCH 31.7 MCHC 33.6 RDW 12.6 Plt Count 130 L MPV 10.3 Immature Gran % 0.4 Seg Neutrophils % 37.5 Lymphocytes % 45.7 Monocytes % 9.8 Eosinophils % 5.4 Basophils % 1.2 Neutrophils # 2.8 Lymphocytes # 3.4 Monocytes # 0.7 Eosinophils # 0.4 Basophils # 0.1 Sodium 137 Potassium 3.5 Chloride 104 Carbon Dioxide 26 BUN 8 Creatinine 1.15 Est GFR ( Amer) > 60 Est GFR (Non-Af Amer) > 60 BUN/Creatinine Ratio 7 Glucose 171 H Calculated Osmolality 286 Calcium 8.8 Total Bilirubin 0.9 AST 70 H ALT 56 H Alkaline Phosphatase 105 Serum Total Protein 6.2 Albumin 2.4 L Globulin 3.8 H Albumin/Globulin Ratio 0.6 L Vancomycin Trough 11.6 Cultures: Cultures 05/07/17 16:48 Surgical Biopsy Culture - Preliminary Left Great Toe Gram Positive Rods 05/08/17 08:28 Blood Culture - Preliminary Peripheral Venipuncture No growth. 05/08/17 08:20 Blood Culture - Preliminary Peripheral Venipuncture No growth. 05/07/17 16:48 Surgical Biopsy Culture - Preliminary Left Great Toe Gram Positive Rods 05/07/17 16:48 Wound Culture - Final Left Great Toe No pathogens isolated. Serology 05/06/17 Range/Units 11:03 Urine Color Yellow (Yellow) Urine Clarity Clear (Clear) Urine pH 6.5 (5.0-8.0) pH Units Ur Specific [place] 1.011 (1.010-1.025) Urine Protein Negative (Neg-Trace) mg/dL Urine Glucose (UA) Normal (Normal) mg/dL Urine Ketones Negative (Negative) mg/dL Urine Blood Negative (Negative) Urine Nitrite Negative (Negative) Urine Bilirubin Negative (Negative) Urine Urobilinogen Normal (Normal) mg/dL Ur Leukocyte Esterase Negative (Negative) Ur Eosinophil Smear 0 (None Seen) % Ur Culture Indicated? NO (NO) Exam - Constitutional Vitals: Temp Pulse Resp BP Pulse Ox 97.7 F 68 16 147/86 95 05/12/17 06:44 05/12/17 06:44 05/12/17 06:44 05/12/17 06:44 05/12/17 06:44 General appearance: cooperative, no acute distress, obese - Head Head exam: Present: atraumatic, normal inspection, normocephalic - Eye Eye exam: Present: EOMI, normal appearance, PERRL Pupils: Present: normal accommodation - ENT ENT exam: Present: mucous membranes moist - Neck Neck exam: Present: normal inspection - Respiratory Respiratory exam: Present: CTAB. Absent: rales, respiratory distress, rhonchi, wheezes - Cardiovascular Cardiovascular exam: Present: RRR, +S1, +S2 - GI/Abdominal GI/Abdominal exam: Present: normal bowel sounds, soft. Absent: distended, tenderness - Extremities Exam Extremities exam: Absent: joint swelling, tenderness Additional comments: Surgical site noted to the distal/medial aspect of the left 1st metatarsal. Sutures intact. Small amount of serosanguinous drainage noted on the old dressing. No marked erythema, warmth, or swelling noted. - Neurological Exam Neurological exam: Present: alert, oriented X3, no focal deficits - Psychiatric Psychiatric exam: Present: normal affect, normal mood - Skin Skin exam: Present: dry, intact, normal color, warm Consult Discharge Plan - Plan Referrals: Cesar Bourgeois DO [Primary Care Provider] -
--- NOTE | 2017-05-12 09:00 | Infectious Disease Consult ---
Date of Encounter: 05/11/17 Time of Encounter: 14:15 Assessment and Plan (1) Osteomyelitis of foot, left, acute Status: Acute Assessment and plan: Location: Left great toe. Causative organism unclear. Intra-operative tissue/bone culture pending, but gram stain showed many GPC, many GNR, and abundant GPR. Final ID and sensitivities are pending. Secondary to traumatic injury. Failed outpatient oral antibiotics (Bactrim). Foot XR in the ED showed an acute, open, comminuted great toe proximal phalanx fracture with erosive changes of the great toe and distal and proximal phalanges consistent with osteomyelitis. Podiatry consulted and the patient went to the OR in 05/07/17. Status post I & D with amputation of the left great toe and TLS drain placement by Dr. Smith. Operative report reviewed. Intra-op cultures are pending. Blood cultures are NGTD. Check ESR and CRP. Continue Vancomycin IV. Pharmacy to dose. Goal trough ~15. VT this morning was 22.9. Continue Levaquin 750mg daily, would recommend keeping IV while hospitalized. Continue wound care and activity restrictions per the podiatry team. Duration of treatment depends on the clinical picture. Monitor renal function and for drug toxicity and dose-adjust antibiotics. Status post PICC line placement 05/08/17. (2) Acute kidney injury Status: Resolved Assessment and plan: Likely multifactorial: infection + NSAID + nephrotoxic medications RP UTS negative. Nephrology consulted and following. Resolved. Continue to trend. Dose-adjust antibiotics. Avoid nephrotoxins as able. (3) COPD (chronic obstructive pulmonary disease) Status: Chronic Qualifiers: COPD type: unspecified COPD Qualified Code(s): J44.9 - Chronic obstructive pulmonary disease, unspecified (4) HTN (hypertension) Status: Chronic Qualifiers: Hypertension type: essential hypertension Qualified Code(s): I10 - Essential (primary) hypertension (5) Hepatitis C Status: Chronic Assessment and plan: Currently on treatment. Qualifiers: Viral hepatitis chronicity: chronic Hepatic coma status: without hepatic coma Qualified Code(s): B18.2 - Chronic viral hepatitis C (6) Tobacco abuse Status: Chronic Assessment and plan: Recommend tobacco cessation to assist with wound healing. Infectious Disease HPI - Data of Consult Patient: new to practice Consult date: 05/11/17 Requesting Physician: Robin King MD Primary Care Provider: Luan Stevens - Consult Narrative Reason for consult: Left toe infection History of present illness: Mr. Valle is a 56 year old male with a past medical history of hepatitis C currently undergoing treatment, lower extremity frostbite, peripheral neuropathy , COPD, and hypertension. The patient was admitted to the hospital May 05 for left great toe infection. May 11 for further recommendations regarding the left toe infection. Since a 56-year-old male with past medical history as stated above. The patient states that about 6 days prior to admission he accidentally kicked the TV and noticed that his toenail came off. He states that he continued to have increasing redness and swelling and drainage from the toe and was seen at the urgent care about 2 days later. He states he was placed on oral Bactrim, but his toe continued to worsen. He was seen by his PCP and instructed to come to the emergency department. Upon arrival, the patient was afebrile and hemodynamically stable. The knees revealed a normal white blood cell count, but he did have an acute kidney injury. Podiatry was consulted and recommended that the patient go to the operating room. On May 07, the patient was taken to the OR and underwent an I&D in an amputation of the left great toe as well as a TLS drain placement. Intraoperative cultures were obtained. Abstain showed many gram-positive cocci and many gram-negative rods, but a final ID and sensitivities are still pending. Nephrology was consulted for the acute kidney injury and the patient had renal ultrasound that showed mild bladder wall thickening and a mildly distended bladder, but the kidneys appeared normal. Blood cultures were obtained 2 sets on May 08 and are currently no growth to date. Since admission, the patient has remained afebrile and hemodynamically stable. He did have a mild elevation of his white blood cell count the day after his surgery, but this has normalized. Currently, the patient is on IV vancomycin and oral Levaquin. We've been asked to evaluate and make further recommendations. My exam today, the patient states overall he feels well. He states he has been undergoing hepatitis C treatment for the past 4 weeks and has had a multitude of side effects related to this medication including fevers, chills, general malaise and fatigue, nausea, vomiting, night sweats, and abdominal pain. He states that all the symptoms occurred prior to his toe injury. States that when he kicked the TV he did not experience pain due to his severe peripheral neuropathy, but he did notice that his nail came off. He states the toe continued to worsen and eventually the wound bed turned black. He also reports some pus coming from the toe prior to the onset of necrosis and that there was a foul odor. CC: Robin King MD Past Med Surg Social Fam HX - Past Medical History Attestation: Yes The following information was validated with the patient. Source: patient, old records reviewed, nursing notes reviewed Medical history: arthritis, COPD, hepatitis (Hepatitis C - currently on treatment), hypertension, other Psychiatric history: anxiety - Past Surgical History Surgical History: other - Social History Smoking Status: Current every day smoker Packs per day: 0.5 Smokeless Tobacco Status: No Alcohol use: none Drug use: none Occupational status: employed Current living situation: Home - Independent Activity Level: Independent ambulation Recent Out of Country Travel Within the Last 8 Weeks: No Exposure or Possible Exposure to Illness During Travel: No - Family History Father Living Status: Cause of : Lung and bladder Ca. Hx Family Cancer: Yes (Lung and bladder Ca.) Mother Living Status: Still Living Hx Family Cardiac Disorders: Yes (HTN) Infectious Disease-CN:Meds Albuterol Sulfate [Albuterol Inhaler] 2 puff IH Q4H PRN 12/20/15 [History] Diclofenac Sodium [Voltaren] 75 mg PO BID 12/20/15 [History] HYDROcodone/Acet 5/325 mg [[place] 5-325 mg] 1 tab PO Q6H PRN 12/20/15 [History] Losartan Potassium [Cozaar] 50 mg PO BID 12/20/15 [History] Nadolol 20 mg PO DAILY 12/20/15 [History] Ranitidine HCl [Zantac] 150 mg PO BID PRN 12/20/15 [History] diazePAM [Diazepam] 10 mg PO TID 12/20/15 [History] Mupirocin [Bactroban Oint] 1 appl TP BID 7 Days 04/24/17 [Rx] Albuterol Neb [AccuNeb] 0.63 mg IH Q6H PRN 05/05/17 [History] Elbasvir/Grazoprevir [Zepatier 50-100 mg Tablet] 1 each PO DAILY 05/05/17 [ History] Umeclidinium Brm/Vilanterol Tr [Anoro Ellipta 62.5-25 Mcg INH] 1 each IH DAILY 05/05/17 [History] 3 Allergy/AdvReac Type Severity Reaction Status Date / Time Penicillins Allergy Swelling Verified 05/05/17 16:50 of Lip/Tongue/Throat All systems: reviewed and no additional remarkable complaints except as stated Exam - Constitutional Vitals: Temp Pulse Resp BP Pulse Ox 97.7 F 68 16 147/86 95 05/12/17 06:44 05/12/17 06:44 05/12/17 06:44 05/12/17 06:44 05/12/17 06:44 General appearance: average body habitus, cooperative, no acute distress - Head Head exam: Present: atraumatic, normal inspection, normocephalic - Eye Eye exam: Present: EOMI, normal appearance, PERRL Pupils: Present: normal accommodation - ENT ENT exam: Present: mucous membranes moist - Neck Neck exam: Present: normal inspection - Respiratory Respiratory exam: Present: CTAB. Absent: rales, respiratory distress, rhonchi, wheezes - Cardiovascular Cardiovascular exam: Present: RRR, +S1, +S2 - GI/Abdominal GI/Abdominal exam: Present: normal bowel sounds, soft. Absent: distended, tenderness - Extremities Exam Extremities exam: Present: normal inspection, pedal edema (1+ RLE). Absent: joint swelling, tenderness Additional comments: Right foot post-op dressing C/D/I. - Neurological Exam Neurological exam: Present: alert, oriented X3, no focal deficits - Psychiatric Psychiatric exam: Present: normal affect, normal mood - Skin Skin exam: Present: dry, intact, normal color, warm Infectious Disease CN: Results - Labs CBC & Chem 7: 05/12/17 04:25 05/12/17 04:25 Cultures: Cultures 05/07/17 16:48 Surgical Biopsy Culture - Preliminary Left Great Toe Gram Positive Rods 05/08/17 08:28 Blood Culture - Preliminary Peripheral Venipuncture No growth. 05/08/17 08:20 Blood Culture - Preliminary Peripheral Venipuncture No growth. 05/07/17 16:48 Surgical Biopsy Culture - Preliminary Left Great Toe Gram Positive Rods 05/07/17 16:48 Wound Culture - Final Left Great Toe No pathogens isolated. Serology: Serology 05/06/17 Range/Units 11:03 Urine Color Yellow (Yellow) Urine Clarity Clear (Clear) Urine pH 6.5 (5.0-8.0) pH Units Ur Specific [place] 1.011 (1.010-1.025) Urine Protein Negative (Neg-Trace) mg/dL Urine Glucose (UA) Normal (Normal) mg/dL Urine Ketones Negative (Negative) mg/dL Urine Blood Negative (Negative) Urine Nitrite Negative (Negative) Urine Bilirubin Negative (Negative) Urine Urobilinogen Normal (Normal) mg/dL Ur Leukocyte Esterase Negative (Negative) Ur Eosinophil Smear 0 (None Seen) % Ur Culture Indicated? NO (NO) Consult Discharge Plan - Plan Referrals: Cesar Bourgeois DO [Primary Care Provider] -
--- NOTE | 2017-05-12 11:37 | Nephrology Progress Note ---
Date of Encounter: 05/12/17 Time of Encounter: 11:35 - Assessment and Plan (1) Acute kidney injury Current Visit: Yes Status: Resolved Kidney function back within normal limits Good UOP Nephrology signing off case. No need for f/u with nephrology; can follow with PCP (2) Osteomyelitis of foot, left, acute Current Visit: Yes Status: Acute per podiatry team Subjective Principal diagnosis: WILLIAM, osteomyelitis left foot Interval history: Patient seen and examined. Sitting up in chair eating a donut. Objective - Vital Signs Vital signs: Vital Signs Temp Pulse Resp BP Pulse Ox 05/12/17 11:18 16 93 05/12/17 10:29 97.3 F L 78 17 136/81 94 05/12/17 06:44 97.7 F 68 16 147/86 95 05/12/17 04:35 98.0 F 71 16 133/74 94 05/12/17 03:44 14 98 05/12/17 00:12 98.1 F 67 16 150/82 95 05/11/17 23:33 14 98 05/11/17 20:10 98.1 F 71 16 174/83 95 05/11/17 15:44 97.9 F 71 18 144/81 93 Intake and Output 05/11/17 05/12/17 05/12/17 23:59 07:59 15:59 Intake Total 490 / 490 0 / 0 120 / 120 Output Total 0 / 0 1275 / 1275 1200 / 1200 Balance 490 / 490 -1275 / -1275 -1080 / -1080 Intake: IV Fluids 250 / 250 Vancocin 1,250 MG In 250 / 250 Dextrose 5% 250 ML @ 166. 67 mls/hr IVPB Q12H [facility] Rx#:[id number] Oral 240 / 240 0 / 0 120 / 120 Output: Urine 0 / 0 1275 / 1275 1200 / 1200 Other: Meal Dinner Breakfast Percent of Meal Consumed 100% 100% Weight 119.9 kg Patient Weight 05/12/17 23:59 Weight 119.9 kg - General Appearance General appearance: Present: well-developed, well-nourished EENT: Present: ATNC, mucous membranes moist, hearing intact, vision intact Neck: Present: supple Respiratory: Present: clear Cardiology: Present: no edema, regular rate, regular rhythm Gastrointestinal: Present: no tenderness, no guarding Integumentary: Present: warm and dry Neurologic: Present: alert and oriented x3 Psychiatric: Present: mood/affect appropriate, cooperative - Lab 05/12/17 04:25 05/12/17 04:25 Most recent lab results Calcium 8.8 mg/dL (8.6-10.8) 05/12/17 04:25 Phosphorus 4.1 mg/dL (2.3-4.7) 05/11/17 05:00 Magnesium 1.2 mg/dL (1.6-2.6) L 05/11/17 05:00 Consult Discharge Plan - Plan Referrals: Cesar Bourgeois DO [Primary Care Provider] -
[2017-05-12] MEDS: ZEPATIER PO SCH (14:00)
[2017-05-12] MEDS: metroNIDAZOLE 500 MG TABLET PO SCH ×2 (14:50→21:57)
[2017-05-12] MEDS: Famotidine 20 MG TABLET PO PRN (15:36)
--- NOTE | 2017-05-12 15:50 | Internal Med Progress Note ---
Date of Encounter: 05/12/17 Time of Encounter: 09:45 - Assessment and plan (1) Osteomyelitis of foot, left, acute Current Visit: Yes Status: Acute Assessment and plan: Continue current antibiotics. Infectious disease consulted for antibiotic recommendations. Wound culture of the left great toe growing anaerobic gram- negative rods and anaerobic gram-positive cocci. Surgical biopsy culture growing gram-positive rods. Awaiting final results. Levofloxacin, Flagyl and vancomycin. Will adjust antibiotic regimen per infectious disease recommendations. (2) Acute kidney injury Current Visit: Yes Status: Resolved Assessment and plan: This has resolved. Nephrology has signed off at this time. (3) COPD (chronic obstructive pulmonary disease) Current Visit: Yes Status: Chronic Assessment and plan: Chronic without any acute exacerbation. Continue duonebs as needed Qualifiers: COPD type: unspecified COPD Qualified Code(s): J44.9 - Chronic obstructive pulmonary disease, unspecified (4) HTN (hypertension) Current Visit: Yes Status: Chronic Assessment and plan: Blood pressure is well controlled Qualifiers: Hypertension type: essential hypertension Qualified Code(s): I10 - Essential (primary) hypertension (5) Hepatitis C Current Visit: Yes Status: Chronic Assessment and plan: Liver enzymes slightly elevated. On treatment with Zepatier Qualifiers: Viral hepatitis chronicity: chronic Hepatic coma status: without hepatic coma Qualified Code(s): B18.2 - Chronic viral hepatitis C - Subjective Interval history: Patient is awake and alert. Sitting up in bed. He has been working with physical therapy this morning. He reports that he gets pain intermittently when he puts pressure on his foot while ambulating but otherwise pain has been well controlled. - Constitutional Vitals: Temp Pulse Resp BP Pulse Ox 97.7 F 75 17 127/81 96 05/12/17 15:24 05/12/17 15:24 05/12/17 15:24 05/12/17 15:24 05/12/17 15:24 General appearance: Present: cooperative, A&O X 3, no acute distress, obese, answers questions appropriately - Eye Eye exam: Present: EOMI, PERRL, conjuntiva pink, sclera anicteric - Neck Neck exam general surgery: Present: supple, trachea midline. Absent: lymphadenopathy - Respiratory Respiratory exam: Present: CTAB. Absent: accessory muscle use, rales, rhonchi, wheezes - Cardiovascular Cardiovascular exam: Present: RRR, +S1, +S2. Absent: diastolic murmur, gallop, rubs, systolic murmur - GI/Abdominal GI/Abdominal exam: Present: normal bowel sounds, soft, no peritoneal signs. Absent: distended, tenderness - Extremities Exam Extremities exam: Present: warm, radial pulses palpable and symmetrical. Absent : calf tenderness, cyanotic, pedal edema Additional comments: Left foot currently bandaged. There is some seeping of blood around surgical site. Otherwise no tenderness. No discharge Internal Medicine: Result - Labs CBC & Chem 7: 05/12/17 04:25 05/12/17 04:25 Labs: Short CBC 05/12/17 Range/Units 04:25 WBC 7.5 (4.3-11.1) K/mcL Hgb 11.0 L (12.9-16.9) g/dL Hct 32.7 L (37.5-50.1) % Plt Count 130 L (140-400) K/mcL Neutrophils # 2.8 (1.6-8.9) K/mcL BMP 05/12/17 04:25 Sodium 137 Potassium 3.5 Chloride 104 Carbon Dioxide 26 BUN 8 Creatinine 1.15 Glucose 171 H Calcium 8.8 Liver Function 05/12/17 Range/Units 04:25 Total Bilirubin 0.9 (0.2-1.2) mg/dL AST 70 H (5-34) Units/L ALT 56 H (0-55) Units/L Alkaline Phosphatase 105 (38-126) Units/L Albumin 2.4 L (3.5-5.0) g/dL - ABG Interpretation ABG results: PT/INR, D-dimer PT 16.3 Seconds (9.4-12.1) H 05/06/17 05:21 Consult Discharge Plan - Plan Referrals: Cesar Bourgeois DO [Primary Care Provider] -
--- NOTE | 2017-05-12 17:07 | Podiatry Progress Note ---
Date of Encounter: 05/12/17 Time of Encounter: 12:00 - Assessment and Plan (1) Osteomyelitis of foot, left, acute Current Visit: Yes Status: Acute Assessment: Acute open fracture of left great toe with osteomyelitis of distal and proximal phalanx of toe. 05/07 #1: Incision of bone cortex for osteomyelitis and debridement of multiple areas left foot. #2 amputation of toe #1 left great toe #3 placement of TLS drain per Plan: Continue current antibiotic therapy- ID will add flagyl today due to culture indication of anaerobic bacterial growth. Continue to await final culture results. ID is on board, recommendations are appreciated. Dressing changed at bedside, cleansed with saline, 4x4 and kerlex. Reapplied post operative sock. Please do not let dressing become soaked with drainage. If strikethrough drainage is noted, please change Will make patient partial weight bearing- will order ortho wedge shoe to bedside. May bear weight to heel only. Subjective Principal diagnosis: WILLIAM, osteomyelitis left foot Interval history: post op day #5 Incision of bone cortex for osteomyelitis and debridement of multiple areas left foot, amputation of toe #1 left great toe, and placement of TLS drain per . TLS drain was removed yesterday.Patient resting comfortably on arrival. Wants to go home and wants to go smoke. Denies any pain at this time. States he is doing well. States he is tolerating PT well but is having a hard time hopping on one leg. Denies any fevers or chills, sob or chest pain. We continue to await culture results to be able to release patient. Objective - Vital Signs Vital Signs: Vital Signs Temp Pulse Resp BP Pulse Ox 05/12/17 15:24 97.7 F 75 17 127/81 96 05/12/17 11:18 16 93 05/12/17 10:29 97.3 F L 78 17 136/81 94 05/12/17 06:44 97.7 F 68 16 147/86 95 05/12/17 04:35 98.0 F 71 16 133/74 94 05/12/17 03:44 14 98 05/12/17 00:12 98.1 F 67 16 150/82 95 05/11/17 23:33 14 98 05/11/17 20:10 98.1 F 71 16 174/83 95 Intake and Output 05/12/17 05/12/17 05/12/17 07:59 15:59 23:59 Intake Total 0 / 0 360 / 360 Output Total 1275 / 1275 1600 / 1600 Balance -1275 / -1275 -1240 / -1240 Intake: Oral 0 / 0 360 / 360 Output: Urine 1275 / 1275 1600 / 1600 Other: Meal Lunch Percent of Meal Consumed 0% # Voids 1 Weight 119.9 kg Patient Weight 05/12/17 23:59 Weight 119.9 kg - Exam Exam: Amputation of toe #1 left foot Surgical site healing uneventfully. Suture line intact. No dehiscence. There is very slight maceration noted to incision line. There is minimal serous drainage noted. No erythema. mild edema, no warmth or odor. No clinical signs of infection Pulses palpable DP/PT Capillary refill is less than 3 seconds There is no calf pain to manual compression There is a loss of protective sensation. Sensation intact to moderate touch - Lab Result Diagrams: 05/12/17 04:25 05/12/17 04:25 Labs: Abnormal lab results RBC 3.47 M/mcL (4.19-5.50) L 05/12/17 04:25 Hgb 11.0 g/dL (12.9-16.9) L 05/12/17 04:25 Hct 32.7 % (37.5-50.1) L 05/12/17 04:25 Plt Count 130 K/mcL (140-400) L 05/12/17 04:25 ESR 25 mm/hr (0-10) H 05/12/17 04:25 PT 16.3 Seconds (9.4-12.1) H 05/06/17 05:21 Glucose 171 mg/dL (70-99) H 05/12/17 04:25 POC Glucose 146 (58-89) H 05/07/17 05:52 Magnesium 1.2 mg/dL (1.6-2.6) L 05/11/17 05:00 AST 70 Units/L (5-34) H 05/12/17 04:25 ALT 56 Units/L (0-55) H 05/12/17 04:25 Albumin 2.4 g/dL (3.5-5.0) L 05/12/17 04:25 Globulin 3.8 g/dL (2.4-3.5) H 05/12/17 04:25 Albumin/Globulin Ratio 0.6 (1.1-2.2) L 05/12/17 04:25 Microbiology, Last 48 Hours 05/07/17 16:48 Surgical Biopsy Culture - Preliminary Left Great Toe Gram Positive Rods 05/07/17 16:48 Wound Culture - Final Left Great Toe No pathogens isolated. 05/07/17 16:48 Anaerobic Culture - Preliminary Left Great Toe Anaerobic Gram Negative Nestor Anaerobic Gram Positive Cocci 05/07/17 16:48 Surgical Biopsy Culture - Preliminary Left Great Toe Gram Positive Rods Consult Discharge Plan - Plan Referrals: Cesar Bourgeois DO [Primary Care Provider] -
[2017-05-12 21:04] LABS: C-Reactive Protein 1 mg/L (Less than 5)
[2017-05-13] MEDS: *HR* HYDROcodone/Acet 5/325 mg TABLET PO PRN ×3 (05:15→21:03)
[2017-05-13] MEDS: *HR* Heparin 5,000 UNIT/ML VIAL SQ SCH ×2 (05:15→18:16)
[2017-05-13] MEDS: Ipratropium/Albuterol Neb 3 ML IH SCH ×2 (05:51→10:32)
[2017-05-13 06:15] LABS: Basophils # 0.1 K/mcL (0.0-0.2); Basophils % 1.4 %; Eosinophils # 0.5 K/mcL (0.0-0.6); Eosinophils % 5.5 %; Hematocrit 34.8 % (37.5-50.1); Hemoglobin 11.9 g/dL (12.9-16.9); Immature Granulocytes % 0.6 % (0-4); Immature Platelets 3.5 % (1.1-6.1); Lymphocytes # 3.6 K/mcL (0.6-4.6); Lymphocytes % 40.5 %; Mean Corpuscular HGB Conc 34.2 g/dL (31.6-35.5); Mean Corpuscular Hemoglobin 32.6 pg (28.0-33.3); Mean Corpuscular Volume 95.3 fL (83.0-100.0); Mean Platelet Volume 10.6 fL (9.4-12.4); Monocytes # 0.9 K/mcL (0.0-1.3); Monocytes % 10.1 %; Neutrophils # 3.8 K/mcL (1.6-8.9); Platelet Count 147 K/mcL (140-400); Red Blood Count 3.65 M/mcL (4.19-5.50); Red Cell Distribution Width 12.8 % (11.5-14.5); Segmented Neutrophils % 41.9 %
[2017-05-13 07:14] LABS: Alanine Aminotransferase 63 Units/L (0-55); Albumin 2.5 g/dL (3.5-5.0); Albumin/Globulin Ratio 0.6 (1.1-2.2); Alkaline Phosphatase 113 Units/L (38-126); Aspartate Amino Transferase 90 Units/L (5-34); BUN/Creatinine Ratio 7 (6-26); Bilirubin,Total 1.2 mg/dL (0.2-1.2); Blood Urea Nitrogen 7 mg/dL (8-26); Calcium 8.9 mg/dL (8.6-10.8); Carbon Dioxide 26 mEq/L (19-29); Chloride 104 mEq/L (98-109); Globulin 4.3 g/dL (2.4-3.5); Glucose 115 mg/dL (70-99); Osmolality,Calculated 283 (280-300); Potassium 3.9 mEq/L (3.5-4.5); Sodium 137 mEq/L (136-145); Total Protein 6.8 g/dL (6.0-8.3); eGFR For African Americans > 60 (> 60); eGFR For Non-African Americans > 60 (> 60)
[2017-05-13] MEDS: levoFLOXacin 750 MG TABLET PO SCH (10:01)
[2017-05-13] MEDS: diazePAM 10 MG TABLET PO SCH ×3 (10:02→20:56)
[2017-05-13] MEDS: metroNIDAZOLE 500 MG TABLET PO SCH ×3 (10:02→20:57)
[2017-05-13] MEDS: Magnesium Oxide 400 MG TABLET PO SCH ×2 (10:02→20:56)
[2017-05-13] MEDS: Vancomycin 1,750 MG in D5% in Water 500 ML IVPB SCH ×2 (10:25→21:03)
[2017-05-13] MEDS: ZEPATIER PO SCH (14:06)
--- NOTE | 2017-05-13 16:30 | Internal Med Progress Note ---
Date of Encounter: 05/13/17 Time of Encounter: 15:00 - Assessment and plan (1) Osteomyelitis of foot, left, acute Current Visit: Yes Status: Acute Assessment and plan: Continue current management with IV vancomycin, Flagyl and levofloxacin per infectious disease recommendations. Culture results are still not finalized. Supportive care and pain control. Moderate risk for complications. (2) Acute kidney injury Current Visit: Yes Status: Resolved (3) COPD (chronic obstructive pulmonary disease) Current Visit: Yes Status: Chronic Assessment and plan: On bronchodilators as needed Qualifiers: COPD type: unspecified COPD Qualified Code(s): J44.9 - Chronic obstructive pulmonary disease, unspecified (4) HTN (hypertension) Current Visit: Yes Status: Chronic Assessment and plan: Blood pressure is well controlled Qualifiers: Hypertension type: essential hypertension Qualified Code(s): I10 - Essential (primary) hypertension (5) Hepatitis C Current Visit: Yes Status: Chronic Assessment and plan: Continue treatment with Zepatier Qualifiers: Viral hepatitis chronicity: chronic Hepatic coma status: without hepatic coma Qualified Code(s): B18.2 - Chronic viral hepatitis C - Subjective Interval history: Patient concerned that the pain in his left foot is intermittently getting worse and not being controlled well. He wishes to be placed back on diclofenac as his kidney function has improved. I explained to him the risks at this time including worsening of his kidney function. He however wishes to take it as he has been on it for a long period of time. Otherwise denies any new complaints. Tolerating diet well. - Constitutional Vitals: Temp Pulse Resp BP Pulse Ox 98.1 F 74 16 131/74 96 05/13/17 14:45 05/13/17 14:45 05/13/17 14:45 05/13/17 14:45 05/13/17 12:00 General appearance: Present: cooperative, A&O X 3, no acute distress, obese, answers questions appropriately - Neck Neck exam general surgery: Present: supple, trachea midline. Absent: lymphadenopathy - Respiratory Respiratory exam: Present: CTAB. Absent: accessory muscle use, rales, rhonchi, wheezes - Cardiovascular Cardiovascular exam: Present: RRR, +S1, +S2. Absent: diastolic murmur, gallop, rubs, systolic murmur - GI/Abdominal GI/Abdominal exam: Present: normal bowel sounds, soft, no peritoneal signs. Absent: distended, tenderness - Extremities Exam Extremities exam: Present: warm, radial pulses palpable and symmetrical. Absent : calf tenderness, cyanotic, pedal edema Additional comments: Left foot remains bandaged with mild serous discharge. - Skin Skin exam: Present: dry, intact Internal Medicine: Result - Labs CBC & Chem 7: 05/13/17 03:58 05/13/17 03:48 Labs: Short CBC 05/13/17 Range/Units 03:58 WBC 9.0 (4.3-11.1) K/mcL Hgb 11.9 L (12.9-16.9) g/dL Hct 34.8 L (37.5-50.1) % Plt Count 147 (140-400) K/mcL Neutrophils # 3.8 (1.6-8.9) K/mcL BMP 05/13/17 03:48 Sodium 137 Potassium 3.9 Chloride 104 Carbon Dioxide 26 BUN 7 L Creatinine 1.05 Glucose 115 H Calcium 8.9 Liver Function 05/13/17 Range/Units 03:48 Total Bilirubin 1.2 (0.2-1.2) mg/dL AST 90 H (5-34) Units/L ALT 63 H (0-55) Units/L Alkaline Phosphatase 113 (38-126) Units/L Albumin 2.5 L (3.5-5.0) g/dL - ABG Interpretation ABG results: PT/INR, D-dimer PT 16.3 Seconds (9.4-12.1) H 05/06/17 05:21 Consult Discharge Plan - Plan Referrals: Cesar Bourgeois DO [Primary Care Provider] -
[2017-05-13] MEDS: Diclofenac Sodium 75 MG TABLET PO SCH (20:56)
[2017-05-14 04:02] LABS: Basophils # 0.1 K/mcL (0.0-0.2); Basophils % 1.4 %; Eosinophils # 0.4 K/mcL (0.0-0.6); Eosinophils % 5.7 %; Hematocrit 33.2 % (37.5-50.1); Hemoglobin 11.2 g/dL (12.9-16.9); Immature Granulocytes % 0.5 % (0-4); Lymphocytes # 2.9 K/mcL (0.6-4.6); Lymphocytes % 38.4 %; Mean Corpuscular HGB Conc 33.7 g/dL (31.6-35.5); Mean Corpuscular Hemoglobin 32.2 pg (28.0-33.3); Mean Corpuscular Volume 95.4 fL (83.0-100.0); Mean Platelet Volume 10.2 fL (9.4-12.4); Monocytes # 0.8 K/mcL (0.0-1.3); Monocytes % 10.6 %; Neutrophils # 3.3 K/mcL (1.6-8.9); Platelet Count 125 K/mcL (140-400); Red Blood Count 3.48 M/mcL (4.19-5.50); Red Cell Distribution Width 12.9 % (11.5-14.5); Segmented Neutrophils % 43.4 %
[2017-05-14 04:04] LABS: Alanine Aminotransferase 53 Units/L (0-55); Albumin 2.4 g/dL (3.5-5.0); Albumin/Globulin Ratio 0.6 (1.1-2.2); Alkaline Phosphatase 104 Units/L (38-126); Aspartate Amino Transferase 73 Units/L (5-34); BUN/Creatinine Ratio 7 (6-26); Bilirubin,Total 1.3 mg/dL (0.2-1.2); Blood Urea Nitrogen 8 mg/dL (8-26); Calcium 9.2 mg/dL (8.6-10.8); Carbon Dioxide 27 mEq/L (19-29); Chloride 103 mEq/L (98-109); Globulin 3.8 g/dL (2.4-3.5); Glucose 131 mg/dL (70-99); Osmolality,Calculated 282 (280-300); Potassium 3.8 mEq/L (3.5-4.5); Sodium 136 mEq/L (136-145); Total Protein 6.2 g/dL (6.0-8.3); eGFR For African Americans > 60 (> 60); eGFR For Non-African Americans > 60 (> 60)
[2017-05-14] MEDS: *HR* Heparin 5,000 UNIT/ML VIAL SQ SCH (06:08)
[2017-05-14] MEDS: *HR* HYDROcodone/Acet 5/325 mg TABLET PO PRN (06:14)
--- NOTE | 2017-05-14 10:07 | Infectious Disease Progress No ---
Date of Encounter: 05/13/17 Time of Encounter: 14:00 - Assessment and Plan (1) Osteomyelitis of foot, left, acute Current Visit: Yes Status: Acute Location: Left great toe. Causative organism unclear. Intra-operative tissue/bone culture pending, but gram stain shows abundant GPR. Anaerobic culture is positive for GNR and GPC. Final ID and sensitivities are pending. Secondary to traumatic injury. Failed outpatient oral antibiotics (Bactrim). Foot XR in the ED showed an acute, open, comminuted great toe proximal phalanx fracture with erosive changes of the great toe and distal and proximal phalanges consistent with osteomyelitis. Podiatry consulted and the patient went to the OR in 05/07/17. Status post I & D with amputation of the left great toe and TLS drain placement by Dr. Smith. Operative report reviewed. Intra-op cultures are pending. Blood cultures are NGTD. ESR is mildly elevated. CRP is pending. Continue Vancomycin IV. Pharmacy to dose. Goal trough ~15. Continue Levaquin 750mg daily, would recommend keeping IV while hospitalized. Continue Metronidazole 500mg PO TID. Continue wound care and activity restrictions per the podiatry team. Duration of treatment depends on the clinical picture. Monitor renal function and for drug toxicity and dose-adjust antibiotics. Status post PICC line placement 05/08/17. (2) Acute kidney injury Current Visit: Yes Status: Resolved Likely multifactorial: infection + NSAID + nephrotoxic medications RP UTS negative. Nephrology consulted and signed off. Resolved. Continue to trend. Dose-adjust antibiotics. Avoid nephrotoxins as able. (3) COPD (chronic obstructive pulmonary disease) Current Visit: Yes Status: Chronic Qualifiers: COPD type: unspecified COPD Qualified Code(s): J44.9 - Chronic obstructive pulmonary disease, unspecified (4) HTN (hypertension) Current Visit: Yes Status: Chronic Qualifiers: Hypertension type: essential hypertension Qualified Code(s): I10 - Essential (primary) hypertension (5) Hepatitis C Current Visit: Yes Status: Chronic Currently on treatment. Qualifiers: Viral hepatitis chronicity: chronic Hepatic coma status: without hepatic coma Qualified Code(s): B18.2 - Chronic viral hepatitis C (6) Tobacco abuse Current Visit: Yes Status: Chronic - Subjective Interval history: Patient seen and examined. No acute events noted overnight. Patient resting quietly in bed with eyes closed, awakens easily. States overall he feels well. Denies any acute complaints. States he continues to have subjective fevers and chills and nausea that he was having prior to his toe injury. States his appetite is good. Denies pain at the surgical site. Denies oral thrush or new skin lesions. Denies diarrhea or abdominal pain. Infect Dis PN-Objective Data - Labs CBC & Chem 7: 05/14/17 03:35 05/14/17 03:35 Labs: Laboratory Results - last 24 hr 05/14/17 05/14/17 03:35 03:35 WBC 7.6 RBC 3.48 L Hgb 11.2 L Hct 33.2 L MCV 95.4 MCH 32.2 MCHC 33.7 RDW 12.9 Plt Count 125 L MPV 10.2 Immature Gran % 0.5 Seg Neutrophils % 43.4 Lymphocytes % 38.4 Monocytes % 10.6 Eosinophils % 5.7 Basophils % 1.4 Neutrophils # 3.3 Lymphocytes # 2.9 Monocytes # 0.8 Eosinophils # 0.4 Basophils # 0.1 Sodium 136 Potassium 3.8 Chloride 103 Carbon Dioxide 27 BUN 8 Creatinine 1.09 Est GFR ( Amer) > 60 Est GFR (Non-Af Amer) > 60 BUN/Creatinine Ratio 7 Glucose 131 H Calculated Osmolality 282 Calcium 9.2 Total Bilirubin 1.3 H AST 73 H ALT 53 Alkaline Phosphatase 104 Serum Total Protein 6.2 Albumin 2.4 L Globulin 3.8 H Albumin/Globulin Ratio 0.6 L Cultures: Cultures 05/08/17 08:28 Blood Culture - Final Peripheral Venipuncture No growth. 05/08/17 08:20 Blood Culture - Final Peripheral Venipuncture No growth. 05/07/17 16:48 Surgical Biopsy Culture - Preliminary Left Great Toe Gram Positive Rods 05/07/17 16:48 Wound Culture - Final Left Great Toe No pathogens isolated. 05/07/17 16:48 Anaerobic Culture - Preliminary Left Great Toe Anaerobic Gram Negative Nestor Anaerobic Gram Positive Cocci 05/07/17 16:48 Surgical Biopsy Culture - Preliminary Left Great Toe Gram Positive Rods Serology 05/06/17 Range/Units 11:03 Urine Color Yellow (Yellow) Urine Clarity Clear (Clear) Urine pH 6.5 (5.0-8.0) pH Units Ur Specific [place] 1.011 (1.010-1.025) Urine Protein Negative (Neg-Trace) mg/dL Urine Glucose (UA) Normal (Normal) mg/dL Urine Ketones Negative (Negative) mg/dL Urine Blood Negative (Negative) Urine Nitrite Negative (Negative) Urine Bilirubin Negative (Negative) Urine Urobilinogen Normal (Normal) mg/dL Ur Leukocyte Esterase Negative (Negative) Ur Eosinophil Smear 0 (None Seen) % Ur Culture Indicated? NO (NO) Exam - Constitutional Vitals: Temp Pulse Resp BP Pulse Ox 97.4 F L 69 18 134/74 94 05/14/17 07:58 05/14/17 07:58 05/14/17 07:58 05/14/17 07:58 05/14/17 07:58 General appearance: average body habitus, cooperative, no acute distress - Head Head exam: Present: atraumatic, normal inspection, normocephalic - Eye Eye exam: Present: EOMI, normal appearance, PERRL Pupils: Present: normal accommodation - ENT ENT exam: Present: mucous membranes moist - Neck Neck exam: Present: normal inspection - Respiratory Respiratory exam: Present: CTAB. Absent: rales, respiratory distress, rhonchi, wheezes - Cardiovascular Cardiovascular exam: Present: RRR, +S1, +S2 - GI/Abdominal GI/Abdominal exam: Present: normal bowel sounds, soft. Absent: distended, tenderness - Extremities Exam Extremities exam: Absent: joint swelling, tenderness Additional comments: Right foot dressing with small amount of serosanguinous drainage noted. No surrounding erythema. - Neurological Exam Neurological exam: Present: alert, oriented X3, no focal deficits - Psychiatric Psychiatric exam: Present: normal affect, normal mood - Skin Skin exam: Present: dry, intact, normal color, warm Consult Discharge Plan - Plan Referrals: Cesar Bourgeois DO [Primary Care Provider] -
[2017-05-14] MEDS: levoFLOXacin 750 MG TABLET PO SCH (10:31)
[2017-05-14] MEDS: Magnesium Oxide 400 MG TABLET PO SCH (10:32)
[2017-05-14] MEDS: Diclofenac Sodium 75 MG TABLET PO SCH (10:32)
[2017-05-14] MEDS: diazePAM 10 MG TABLET PO SCH ×2 (10:32→14:46)
[2017-05-14] MEDS: metroNIDAZOLE 500 MG TABLET PO SCH ×2 (10:33→14:46)
[2017-05-14] MEDS: Vancomycin 1,750 MG in D5% in Water 500 ML IVPB SCH (10:37)
--- NOTE | 2017-05-14 14:38 | Discharge Summary ---
Date of Encounter: 05/14/17 Time of Encounter: 14:37 - Discharge Diagnosis (1) Osteomyelitis of foot, left, acute Priority: Primary Status: Acute (2) Acute kidney injury Priority: Secondary Status: Resolved (3) COPD (chronic obstructive pulmonary disease) Priority: Secondary Status: Chronic Qualifiers: COPD type: unspecified COPD Qualified Code(s): J44.9 - Chronic obstructive pulmonary disease, unspecified (4) HTN (hypertension) Priority: Secondary Status: Chronic Qualifiers: Hypertension type: essential hypertension Qualified Code(s): I10 - Essential (primary) hypertension (5) Hepatitis C Priority: Secondary Status: Chronic Qualifiers: Viral hepatitis chronicity: chronic Hepatic coma status: without hepatic coma Qualified Code(s): B18.2 - Chronic viral hepatitis C - Discharge Medications Prescriptions: HYDROcodone/Acet 5/325 mg [[place] 5-325 mg] 1 tab PO Q6H PRN #20 tablet PRN Reason: Pain Lactobacillus [Culturelle] 1 each PO BID #60 cap.sprink Vancomycin/0.9 % Sod Chloride [Vanco 1.75 G/250 ml-0.9% NaCl] 1.75 gm IV Q12H # 60 plast..bag Home Medications: Albuterol Sulfate [Albuterol Inhaler] 2 puff IH Q4H PRN 12/20/15 [History] Diclofenac Sodium [Voltaren] 75 mg PO BID 12/20/15 [History] Losartan Potassium [Cozaar] 50 mg PO BID 12/20/15 [History] Nadolol 20 mg PO DAILY 12/20/15 [History] Ranitidine HCl [Zantac] 150 mg PO BID PRN 12/20/15 [History] diazePAM [Diazepam] 10 mg PO TID 12/20/15 [History] Albuterol Neb [AccuNeb] 0.63 mg IH Q6H PRN 05/05/17 [History] Elbasvir/Grazoprevir [Zepatier 50-100 mg Tablet] 1 each PO DAILY 05/05/17 [ History] Umeclidinium Brm/Vilanterol Tr [Anoro Ellipta 62.5-25 Mcg INH] 1 each IH DAILY 05/05/17 [History] HYDROcodone/Acet 5/325 mg [[place] 5-325 mg] 1 tab PO Q6H PRN #20 tablet 05/14/17 [Rx] Lactobacillus [Culturelle] 1 each PO BID #60 cap.sprink 05/14/17 [Rx] Magnesium Oxide [Mag-Ox] 400 mg PO BID tablet 05/14/17 [Rx] Vancomycin/0.9 % Sod Chloride [Vanco 1.75 G/250 ml-0.9% NaCl] 1.75 gm IV Q12H # 60 plast..bag 05/14/17 [Rx] levoFLOXacin [Levaquin] 750 mg PO DAILY 28 Days tablet 05/14/17 [Rx] metroNIDAZOLE [Flagyl] 500 mg PO TID 28 Days tablet 05/14/17 [Rx] Allergies/Adverse Reactions: 3 Allergy/AdvReac Type Severity Reaction Status Date / Time Penicillins Allergy Swelling Verified 05/05/17 16:50 of Lip/Tongue/Throat Date of admission: 05/06/17 07:57 Primary care physician: Luan Stevens Consults: 05/08/17 12:10 Consult to PICC team [Consult to Invasive Line Access Team] [CONS] Routine Reason for Consult: Foot infection Line Type: PICC PICC line indications: intermediate project manager Med/Antibiotic Time Notified: 12:11 Call Completed: No 05/08/17 12:12 Consult to Infectious Diseases [CONS] Routine Consulting Provider: Infectious Disease [facility] Reason for Consult: Osteomyelitis chronic foot infection Time Notified: 12:12 Call Completed: No 05/08/17 12:17 Consult to Metabolic Specialist [CONS] Stat Reason for SW Consult: Placement for intermediate project manager antibiotics and rehabilation for NWB of foot incision 05/08/17 12:18 Consult to Physical Therapy [CONS] Routine Comment: Evaluate, develop and implement POC Reason for Consult: NWB of left foot post op 05/08/17 15:32 OT [Consult to Occupational Therapy] [CONS] Routine Comment: Evaluate, develop and implement POC Reason for Consult: per physical therapy recommendations 05/08/17 21:50 Consult to Invasive Line Access Team [CONS] Routine Reason for Consult: Picc Line Insertion Line Type: PICC Discharging clinician: Robin King Anticipated date of discharge: 05/14/17 - Patient Status Disposition: Transfer SNF Condition: Good Functional capacity at discharge: uses cane/walker Overall status at discharge: patient is progressing back to baseline - Discharge Instructions Follow Up With: Ankita Gaming CNP [Advanced Practice Nurse] - 05/28/17 8:40 am (in 1 -2 weeks ) David Smith DPM [Partnered Physician] - (in 1-2 weeks) Cesar Bourgeois DO [Primary Care Provider] - (in 1 week) Additional Instructions: Daily dressing change/wound care orders; Rinse foot with saline, gently pat dry , wipe incision with betadine, cover incision with adaptic, cover with 4 x 4's and wrap entire foot with kerlix. - Diet and Activity Activity: as per physical therapy Diet: low fat, low cholesterol, low salt diet Hospital course: Mr. Valle is a 56 year old male patient with history of COPD, hypertension , hepatitis C receiving treatment presented to the ER with left foot cellulitis and infection associated with open comminuted fracture of the left great toe. Patient was injured 2 weeks prior to presentation and was being managed as outpatient. X-ray of the foot suggested findings of osteomyelitis and so podiatry was consulted and patient was placed on IV antibiotics. He also had acute kidney injury with a creatinine of 2.13. He was treated with IV hydration and nephrology was consulted in helping manage his condition. Patient had been taking NSAIDs and was also on ARB in addition to taking Bactrim recently. These medications were held. Podiatry evaluated the patient and performed incision and debridement of multiple areas of the left foot along with amputation of the first left great toe. A TLS drain was in place. Since then he has been managed with intravenous antibiotics and local wound care in conjunction with podiatry. His wound cultures are growing anaerobic organisms and gram-positive rods. Infectious disease has been consulted to help manage his care. Currently the patient is being placed on has been placed on vancomycin intravenously and is also receiving Levaquin and Flagyl per the recommendations. He is also received physical therapy and has been recommended placement to skilled rehabilitation. His renal function has normalized and patient has been placed back on his ARB. I did recommend that we stop his NSAIDs but patient wishes to continue taking diclofenac as he has been on this medication for several years without any issues. He understands the risks of damage to his kidneys. Patient also wishes to be discharged today although his culture results are not finalized yet. I discussed this with infectious disease and they recommended discharging the patient on his current antibiotics and they will follow up with him in the clinic and de-escalate as needed. He will be discharged to skilled rehabilitation later today. - Time Spent with Patient Total time spent providing and/or coordinating discharge services: Greater than 30 minutes (40 min) - Constitutional Vitals: Temp Pulse Resp BP Pulse Ox 98.7 F 73 17 128/73 95 05/14/17 11:06 05/14/17 11:06 05/14/17 11:06 05/14/17 11:06 05/14/17 11:06 General appearance: Present: cooperative, A&O X 3, no acute distress, obese, answers questions appropriately - Eye Eye exam: Present: EOMI, PERRL, conjuntiva pink, sclera anicteric - Cardiovascular Cardiovascular exam: Present: RRR, +S1, +S2. Absent: diastolic murmur, gallop, rubs, systolic murmur - GI/Abdominal GI/Abdominal exam: Present: normal bowel sounds, soft, no peritoneal signs. Absent: distended, tenderness - Extremities Exam Extremities exam: Present: warm, radial pulses palpable and symmetrical. Absent : calf tenderness, cyanotic, pedal edema Additional comments: Left foot bandanged. Minimal serous discharge noted. - Neurological Exam Neurological exam: Present: alert, oriented X3, no focal deficits. Absent: facial droop, speech deficit
[2017-05-14] MEDS: ZEPATIER PO SCH (14:47)
--- NOTE | 2017-05-14 14:55 | Physician Discharge Referral ---
ExtendedCare Referral Info Provider in Charge after Transfer: PCP Institutional Level of Care: Skilled - Diagnosis (1) Osteomyelitis of foot, left, acute Priority: Primary Status: Acute (2) Acute kidney injury Priority: Secondary Status: Resolved (3) COPD (chronic obstructive pulmonary disease) Priority: Secondary Status: Chronic (4) HTN (hypertension) Priority: Secondary Status: Chronic (5) Hepatitis C Priority: Secondary Status: Chronic Prognosis: Fair Aware of Diagnosis: Patient, Family Aware of Prognosis: Patient, Family - Transfer Medications Prescriptions: HYDROcodone/Acet 5/325 mg [[place] 5-325 mg] 1 tab PO Q6H PRN #20 tablet PRN Reason: Pain Lactobacillus [Culturelle] 1 each PO BID #60 cap.sprink Vancomycin/0.9 % Sod Chloride [Vanco 1.75 G/250 ml-0.9% NaCl] 1.75 gm IV Q12H # 60 plast..bag Home Medications: Albuterol Sulfate [Albuterol Inhaler] 2 puff IH Q4H PRN 12/20/15 [History] Diclofenac Sodium [Voltaren] 75 mg PO BID 12/20/15 [History] Losartan Potassium [Cozaar] 50 mg PO BID 12/20/15 [History] Nadolol 20 mg PO DAILY 12/20/15 [History] Ranitidine HCl [Zantac] 150 mg PO BID PRN 12/20/15 [History] diazePAM [Diazepam] 10 mg PO TID 12/20/15 [History] Albuterol Neb [AccuNeb] 0.63 mg IH Q6H PRN 05/05/17 [History] Elbasvir/Grazoprevir [Zepatier 50-100 mg Tablet] 1 each PO DAILY 05/05/17 [ History] Umeclidinium Brm/Vilanterol Tr [Anoro Ellipta 62.5-25 Mcg INH] 1 each IH DAILY 05/05/17 [History] HYDROcodone/Acet 5/325 mg [[place] 5-325 mg] 1 tab PO Q6H PRN #20 tablet 05/14/17 [Rx] Lactobacillus [Culturelle] 1 each PO BID #60 cap.sprink 05/14/17 [Rx] Magnesium Oxide [Mag-Ox] 400 mg PO BID tablet 05/14/17 [Rx] Vancomycin/0.9 % Sod Chloride [Vanco 1.75 G/250 ml-0.9% NaCl] 1.75 gm IV Q12H # 60 plast..bag 05/14/17 [Rx] levoFLOXacin [Levaquin] 750 mg PO DAILY 28 Days tablet 05/14/17 [Rx] metroNIDAZOLE [Flagyl] 500 mg PO TID 28 Days tablet 05/14/17 [Rx] Allergies/Adverse Reactions: 3 Allergy/AdvReac Type Severity Reaction Status Date / Time Penicillins Allergy Swelling Verified 05/05/17 16:50 of Lip/Tongue/Throat - Respiratory Orders Smoking Cessation: Smoking cessation has been advised. For more information, call the [place] [employer] Quit Line at 5-483-UXRQ-NOW. - Lab Orders Lab Orders: Other (include drug levels w/frequency) (CBC, basic panel, ESR, CRP and vancomycin trough level every Thursday and as needed while patient is on antibiotics) - Advance Directives Code Status: Full Code - Mobility Orders Ambulate (per PT) - Rehabiliation Orders Rehab Potential: Good Rehab Orders: Evaluation for Physical Therapy, Evaluation for Occupational Therapy - Diet Orders Cardiac CERTIFICATION: I certify that the transfer of the above named patient to an Extended Care Facility is necessary for the continuing treatment of the diagnosis listed. The above information is true and accurate reflection of patient's current condition. Confidential - Redisclosure prohibited without a patient's written consent.
[2017-05-14 15:08] VITALS: BP 133/72
[2017-05-14] MEDS ORDERED: Aminoglycoside Consult 1 EACH MC ONE (19:19)
== END 2017-05-14 19:20 | DRG 314 ==
LOC: 3ANU 16:32 → EMEROO 16:32 → 3ANU 21:16 → SUATTDRO 05-06 07:57
PROVIDERS: ADMIT Family Medicine; ATTEND Internal Medicine